=== PATIENT | male | born 1975 | race Caucasian/White ===

== ENCOUNTER 2023-11-27 06:36 | Emergency (ER) | payer BC, SELFPAY ==
[2023-11-27 07:06] VITALS: BP 147/81; PULSE 83; RESP 18; TEMP 36.4; O2SAT 97; BMI 39.4
--- NOTE | 2023-11-27 07:20 | ED.GENADULT ---
HPI - General Adult General Chief complaint: Skin/Abscess/Foreign Body Stated complaint: sore on right leg Time Seen by Provider: 11/27/23 07:20 History of Present Illness HPI narrative: states sore on upper inner right thigh. noted about a week ago, getting worse. 48-year-old man presenting to the emergency department with concern of a sore on his leg; specifically the far upper inner right thigh. He thinks he noted something bothering him there about a week ago. He has not had a fever or sweats. He thought maybe he scrubbed too hard in the area during bathing. He has not had any drainage. Particularly tender when he goes to sit on the toilet. Has not noted any hematochezia. He does shave and thought maybe this could have irritated the area. Past medical includes hypertension, gout, dyslipidemia Related Data Home Medications Medication Instructions Recorded Confirmed allopurinol 100 mg tablet 200 mg PO DAILY 11/27/23 11/27/23 fenofibrate 160 mg tablet 160 mg PO DAILY 11/27/23 11/27/23 metoprolol succinate 50 mg 50 mg PO DAILY 11/27/23 11/27/23 tablet,extended release 24 hr mirtazapine 7.5 mg tablet 7.5 mg PO QPM 11/27/23 11/27/23 Allergies Allergy/AdvReac Type Severity Reaction Status Date / Time No Known Drug Allergies Allergy Verified 11/27/23 07:09 Exam Narrative: Exam Narrative: Is pleasant. Matter of fact in style. Breathing easily. Abdomen is little overweight. Is lying in boxer briefs. Pulling the leg up reveals the area in question deep in the right inner thigh not quite at the inguinal crease. There is some bruising or superficial vascularity/varicose veins along with some stretch saucedo in the area. A little boggy over these areas. Total area of mild erythema is about 6 cm in diameter. Centrally about a 3 cm area of deeper induration, possible abscess. The skin itself is not remarkably indurated. He is exquisitely tender to palpation generally. Const: Vital Signs, click to edit/add: Vital Signs - 24 hr 11/27/23 07:06 Temperature 97.6 F Pulse Rate [Right Pulse Oximeter] 83 Respiratory Rate 18 Blood Pressure [Ri ght Upper Arm] 147/81 H Pulse Oximetry 97 Oxygen Delivery Me thod Room Air Documenting provider has reviewed patient's vital signs: yes Course Vital Signs Vital signs: Initial Vital Signs Temperature 97.6 F 11/27/23 07:06 Temperature Source Temporal Artery Scan 11/27/23 07:06 Pulse Rate 83 11/27/23 07:06 Respiratory Rate 18 11/27/23 07:06 Blood Pressure 147/81 H 11/27/23 07:06 Blood Pressure Mean 103 11/27/23 07:06 Blood Pressure Position Sitting 11/27/23 07:06 Pulse Oximetry 97 11/27/23 07:06 Oxygen Delivery Method Room Air 11/27/23 07:06 Vital Signs Temperature 97.6 F 11/27/23 07:06 Pulse Rate 83 11/27/23 07:06 Respiratory Rate 18 11/27/23 07:06 Blood Pressure 147/81 H 11/27/23 07:06 Pulse Oximetry 97 11/27/23 07:06 Oxygen Delivery Method Room Air 11/27/23 07:06 Temperature 97.6 F 11/27/23 07:06 Pulse Rate 83 11/27/23 07:06 Respiratory Rate 18 11/27/23 07:06 Blood Pressure 147/81 H 11/27/23 07:06 Pulse Oximetry 97 11/27/23 07:06 Oxygen Delivery Method Room Air 11/27/23 07:06 Medical Decision Making MDM Narrative Medical decision making narrative: This is a little unusual. With abscess and overlying cellulitis I would expect more heat and induration but I think this is the more likely answer. Did cleanse the area with Betadine and using 18 gauge needle inserted it into the area where I thought I saw a small dot of possible pointing, and into the deeper swelling. Was able to obtain about half a mL of darker blood. No purulence evident. Continue to ooze a little bit of blood after retracting needle slowed quickly. Also in differential would be bleeding vascularity, deeper varicose vein, venous banuelos, AVM. I have discussed this case with on-call surgeon and oncoming partner will be assuming cares at change of shift. At this time will place IV and anticipate IV contrasted pelvis CT. Labs pending as well. Discharge Plan Discharge Prescriptions: No Action metoprolol succinate 50 mg tablet extended release 24 hr 50 mg PO DAILY allopurinol 100 mg tablet 200 mg PO DAILY mirtazapine 7.5 mg tablet 7.5 mg PO QPM fenofibrate 160 mg tablet 160 mg PO DAILY Follow Up/Referrals: Yossi Angulo MD [Primary Care Provider] -
--- NOTE | 2023-11-27 08:03 | CT_ITS ---
Patient: ESEQUIEL WINCHESTER Facility:?[facility] Patient ID:?[id number] Site Patient ID:?[id number]. Site :?[id number] Study:?CT-Pelvis W/IV-11/27/2023 8:54:17 AM Ordering Physician:TRISTON Final Report: Indication: Swelling upper inner right thigh. Rule out abscess, infection or hematoma Technique: CT examination of the pelvis was performed. The study was performed after the intravenous administration of 122 cc of Isovue 370. Sagittal and coronal reformatted imaging was performed. Imaging was acquired from the mid pelvis through about the proximal 3rd of both femurs. Please note that all CT scans at this facility use dose modulation, iterative reconstruction, and/or weight-based dosing when appropriate to reduce radiation dose to as low as reasonably achievable. Comparison: There are no prior studies for comparison. Findings: No significant osseous abnormality. The limited visualized intrapelvic contents are unremarkable. There are small fat containing bilateral inguinal hernias. There is cutaneous and subcutaneous induration of the upper inner right thigh mainly posteriorly extending towards the inferior right gluteal fold. There is no gas within soft tissues and there is no discrete drainable collection. This likely represents cellulitis. Impression: Cutaneous and immediate subcutaneous abnormality in the upper inner right thigh posteriorly. No gas within soft tissues. No drainable collection. This probably represents cellulitis. Please note that all CT scans at this facility use dose modulation, iterative reconstruction, and/or weight-based dosing when appropriate to reduce radiation dose to as low as reasonably achievable. Dictated by Cade Garcia MD @ 11/27/2023 10:42:15 AM Signed by:?Cade Garcia MD @11/27/2023 10:42:15 AM (Electronic Signature)
[2023-11-27 08:34] LABS: Basophils Absolute Auto 0.02 K/uL (0.00-0.30); Basophils Percent Auto 0.4 % (0.0-3.0); Eosinophils Percent Auto 2.1 % (0.0-7.0); Hematocrit 39.9 % (37.0-53.0); Hemoglobin* 13.6 gm/dL (13.5-17.5); Immature Granulocytes Abs Auto 0.03 K/uL (0.00-0.30); Immature Granulocytes Pct Auto 0.6 %; Lymphocytes Absolute Auto 1.42 K/uL (0.90-2.90); Lymphocytes Percent Auto 29.3 % (20-44); Mean Corpuscular HGB Conc 34 gm/dL (32-36); Mean Corpuscular Hemoglobin 32 pg (26-34); Mean Corpuscular Volume 93 fL (80-100); Monocytes Percent Auto 10.5 % (0.0-11.0); Neutrophils Absolute Auto 2.76 K/uL (1.7-7.0); Neutrophils Percent Auto 57.1 % (42.0-72.0); Platelet Count* 186 K/uL (140-440); RDW Coefficient of Variation % 11.6 % (11.5-15.5); Red Blood Count 4.27 m/uL (4.30-5.90); Slide Review Reflex No; White Blood Count* 4.84 K/uL (4.50-11.00)
[2023-11-27] MEDS: 0.9 % SODIUM CHLORIDE 1000 ml 1,000 ML IV (08:37)
[2023-11-27 08:55] LABS: C Reactive Protein* 1.6 mg/dL (0.5-1.0)
[2023-11-27 10:43] VITALS: BP 146/89; PULSE 74; RESP 16; O2SAT 96
== END 2023-11-27 11:25 | disposition home or self-care (01) ==
PROVIDERS: Family Medicine; Emergency Provider Emergency Medicine; PCP Family Medicine
DX: L03.115 Cellulitis of right lower limb (principal)
CPT/HCPCS: 36415; 72193; 85025; 86140; 99284; J7030; Q9967

== ENCOUNTER 2024-02-06 20:59 | Emergency (ER) | payer BC, SELFPAY ==
[2024-02-06 21:07] VITALS: BP 134/101; PULSE 110; RESP 20; TEMP 37.2; O2SAT 97; BMI 37.3
--- NOTE | 2024-02-06 21:35 | ED.GENADULT ---
HPI - General Adult General Time Seen by Provider: 21:35 Date Seen: 02/06/24 Chief complaint: Skin/Abscess/Foreign Body Stated complaint: R leg pain Time Seen by Provider: 02/06/24 21:34 Source: patient, RN notes reviewed and old records reviewed Mode of arrival: ambulatory Limitations: no limitations History of Present Illness HPI narrative: Patient is a very pleasant 48-year-old gentleman with a history of cellulitis in the groin who comes to the emergency room with complaints of redness and soreness in the same location that he experienced this in November. Patient notes that in November he waited 2 weeks and had discomfort and a large area of swelling in the groin. He is showing me the area of the very posterior medial thigh with some extension onto the posterior buttocks. He notes that he was placed on 2 antibiotics which I do learn was Keflex and Bactrim. He states that he was on this medication for 10 days and finally his symptoms cleared up. While he was here however he had such large amount of swelling that they tried to do a needle aspiration but only read got blood back. He states they did a CT but at that time there was no large abscess to be drained. He does not note any fever and he has not had any chills. He states that he put some calamine lotion on the area because he felt like it was burning. He does use a razor to shave hair in this area. He has not taken any pain medication at this point. Denies any pain into the scrotum. Related Data Home Medications Medication Instructions Recorded Confirmed allopurinol 100 mg tablet 200 mg PO DAILY 11/27/23 02/06/24 fenofibrate 160 mg tablet 160 mg PO DAILY 11/27/23 02/06/24 metoprolol succinate 50 mg 50 mg PO DAILY 11/27/23 02/06/24 tablet,extended release 24 hr mirtazapine 7.5 mg tablet 7.5 mg PO QPM 11/27/23 02/06/24 Previous Rx's Medication Instructions Recorded cephalexin 500 mg capsule 500 mg PO QID #40 caps 11/27/23 sulfamethoxazole 800 1 tab PO BID 10 days #20 tabs 11/27/23 mg-trimethoprim 160 mg tablet (Bactrim DS) Allergies Allergy/AdvReac Type Severity Reaction Status Date / Time No Known Drug Allergies Allergy Verified 11/27/23 07:09 Review of Systems Status of ROS: Reports: 10 or more systems reviewed and unremarkable except as noted in History and below Exam Narrative: Exam Narrative: Mr. Coyle is alert and oriented. He is a very talkative and pleasant gentleman in no acute distress. No respiratory distress. Abdomen soft. Examination of the groin shows no discomfort in the lower abdomen onto the anterior leg. Will as patient bends his knee there is area of mild erythema on the most superior aspect of the right inner thigh extending onto the buttock. There is no drainage from this area. Just laterally to this area there are skin changes consistent with a previous chronic infection and perhaps a sinus tract. There is no drainage at this time. There is no fluctuance in this area to suggest a large abscess. There is no erythema evidence of infection of the scrotum. Const: Vital Signs, click to edit/add: Vital Signs - 24 hr 02/06/24 21:07 Temperature 99 F Pulse Rate [Right Pulse Oximeter] 110 H Respiratory Rate 20 Blood Pressure [Ri ght Upper Arm] 134/101 H Pulse Oximetry 97 Oxygen Delivery Me thod Room Air Documenting provider has reviewed patient's vital signs: yes Course Vital Signs Vital signs: Initial Vital Signs Temperature 99 F 02/06/24 21:07 Temperature Source Temporal Artery Scan 02/06/24 21:07 Pulse Rate 110 H 02/06/24 21:07 Pulse Rhythm Regular 02/06/24 21:07 Pulse Strength 3+ Normal 02/06/24 21:07 Respiratory Rate 20 02/06/24 21:07 Blood Pressure 134/101 H 02/06/24 21:07 Blood Pressure Mean 112 H 02/06/24 21:07 Pulse Oximetry 97 02/06/24 21:07 Oxygen Delivery Method Room Air 02/06/24 21:07 Vital Signs Temperature 99 F 02/06/24 21:07 Pulse Rate 110 H 02/06/24 21:07 Respiratory Rate 20 02/06/24 21:07 Blood Pressure 134/101 H 02/06/24 21:07 Pulse Oximetry 97 02/06/24 21:07 Oxygen Delivery Method Room Air 02/06/24 21:07 Temperature 99 F 02/06/24 21:07 Pulse Rate 110 H 02/06/24 21:07 Respiratory Rate 20 02/06/24 21:07 Blood Pressure 134/101 H 02/06/24 21:07 Pulse Oximetry 97 02/06/24 21:07 Oxygen Delivery Method Room Air 02/06/24 21:07 Medical Decision Making MDM Narrative Medical decision making narrative: 1. Cellulitis-this appears to be an early cellulitis. I am wondering if recurrent shaving of the groin is causing this sort of thing. There is certainly skin changes darkening of the skin suggestive of a previous infection/ingrown hair. This is not significantly warm to the touch nor is there any extension of this on to the scrotum itself. I would suggest treatment with Keflex and Bactrim as we had done previously. There is nothing to culture at this time and there is no fluctuance to suggest need for any aspiration. Keflex 500 mg p.o. t.i.d. x7 days and Bactrim double strength 1 tab p.o. b.i.d. x7 days is ordered via [employer]. 2. Disposition-home at this time. Have suggested to patient that he needs follow-up if he is not improving or medical attention if he has worsening symptoms especially fever vomiting chills and as needed. He voices understanding. Discharge Plan Discharge Clinical Impression: Cellulitis Qualifiers: Site of cellulitis: buttock Qualified Code(s): L03.317 - Cellulitis of buttock Patient Disposition: Home, Self-Care Condition: Unchanged Additional Instructions: Suggest that we follow same treatment as you had in November. At this time I do not note any drainable area but I do think that you have very early cellulitis. You may wish to discontinue any shaving in the groin area. We will start you on Keflex and Bactrim again. I put this in our [facility] meds machine. Try not to irritate this area. If you notice fever, increased swelling you will need to be re-evaluated. Prescriptions: No Action metoprolol succinate 50 mg tablet extended release 24 hr 50 mg PO DAILY allopurinol 100 mg tablet 200 mg PO DAILY mirtazapine 7.5 mg tablet 7.5 mg PO QPM fenofibrate 160 mg tablet 160 mg PO DAILY cephalexin 500 mg capsule 500 mg PO QID Qty: 40 0RF sulfamethoxazole-trimethoprim [Bactrim DS] 800-160 mg tablet 1 tab PO BID 10 Days Qty: 20 0RF Follow Up/Referrals: Yossi Angulo MD [Primary Care Provider] - Stand Alone Forms: [employer] Info Instructions
--- OUTSIDE RECORDS SUMMARY | 2024-02-06 22:11 | XMS_ITS | Clinical Summary ---
Author Name Unknown Organization [facility] Address [address] [place] [address] Care Team Providers Care Distance Learning Coordinator Name Role Phone Clinic, [facility] Primary Care Provider Allergies No known active allergies Medications Medication Sig Dispensed Refills Start Date End Date Status oxyCODONE (ROXICODONE) 5 MG tablet Take 1 tablet (5 mg) by mouth every 6 hours as needed for pain 8 tablet 09/11/2020 Active Social History Tobacco Use Types Packs/Day Years Used Date Smoking Tobacco: Never Assessed Adolescent Education Answer Date Record ed Getting School Help Needed Not on file 06/27 Sex and Gender Information Value Date Recorded Sex Assigned at Not on file Gender Identity Not on file Sexual Orientation Not on file Last Filed Vital Signs Vital Sign Reading Time Taken Comments Blood Pressure 143/95 04/16/2021 12:33 AM CDT Pulse 79 04/16/2021 12:33 AM CDT Temperature 36 ??C (96.8 ??F) 04/16/2021 12:33 AM CDT Respiratory Rate 20 04/16/2021 12:33 AM CDT Oxygen Saturation 95% 04/16/2021 12:33 AM CDT Inhaled Oxygen Concentration - - Weight 111.3 kg (245 lb 6 oz) 04/16/2021 12:33 A M CDT Height - - Body Mass Index - - Plan of Treatment Health Maintenance Due Date Last Done Comments ADVANCE CARE PLANNING 1975 ANNUAL REVIEW OF HM ORDERS 1977 CT COLONOGRAPHY 1977 FIT 1975 FLEX SIG 1975 YEARLY PREVENTIVE VISIT 1977 sDNA (Cologuard) 1977 COLONOSCOPY 1987 COLORECTAL CANCER SCREENING 1987 HIV SCREENING 1992 HEPATITIS C SCREENING 1995 HEPATITIS B IMMUNIZATION (1 of 3 - 19+ 3-dose series) 1996 LIPID 2017 COVID-19 Vaccine (1 - 2022-2 4 season) 2023 GLUCOSE 09/11/2023 09/11/2020, 08/13/2020 PHQ-2 (once per calendar year) 2023 INFLUENZA VACCINE (Season Ended) 2024 DTAP/TDAP/TD IMMUNIZATION (2 - Td or Tdap) 11/10/2029 11/10/2019 HPV IMMUNIZATION Aged Out No longer e ligible based on patient's age to complete this topic IPV IMMUNIZATION Aged Out No longer e ligible based on patient's age to complete this topic MENINGITIS IMMUNIZATION Aged Out No l onger eligible based on patient's age to complete this topic Pneumococcal Vaccine: Pediatrics (0 to 5 Years) and At-Risk Patients (6 to 64 Years) Aged Out No longer eligible b ased on patient's age to complete this topic RSV MONOCLONAL ANTIBODY Aged Out No l onger eligible based on patient's age to complete this topic Procedures Procedure Name Priority Date/Time Associated Diagnosis Comments BASIC METABOLIC PANEL STAT 09/11/2020 2:04 PM [facility] from Last 3 Months or Most Recently Relevant to Health Maintenance Results * (ABNORMAL) Basic metabolic panel (09/11/2020 2:04 PM [facility]) Sodium 138 133 - 144 mmol/L 09/11/2020 2:25 PM [facility] Potassium 4.1 3.4 - 5.3 mmol/L 09/11/2020 2:25 PM [facility] Chloride 108 94 - 109 mmol/L 09/11/2020 2:25 PM [facility] Carbon Dioxide 26 20 - 32 mmol/L 09/11/2020 2:34 PM [facility] Anion Gap 4 3 - 14 mmol/L 09/11/2020 2:34 PM [facility] Glucose 112(H) 70 - 99 mg/dL 09/11/2020 2:34 PM [facility] Urea Nitrogen 22 7 - 30 mg/dL 09/11/2020 2:34 PM [facility] Creatinine 1.17 0.66 - 1.25 mg/dL 09/11/2020 2:34 PM [facility] GFR Estimate 76 >60 mL/min/{1. 73_m2} 09/11/2020 2:34 PM [facility] Comment: Non GFR Calc Starting 09/21/2018, serum creatinine based estimated GFR (eGFR) will be calculated using the Chronic Kidney Disease Epidemiology Collaboration (CKD-EPI) equation. GFR Estimate If Black 88 >60 mL/min/{1. 73_m2} 09/11/2020 2:34 PM [facility] Comment: GFR Calc Starting 09/21/2018, serum creatinine based estimated GFR (eGFR) will be calculated using the Chronic Kidney Disease Epidemiology Collaboration (CKD-EPI) equation. Calcium 9.4 8.5 - 10.1 mg/dL 09/11/2020 2:34 PM [facility] Blood specimen (specimen) 09/11/2020 2:04 PM [facility] 09/11/2020 2:12 PM [facility] Nahed Nance MD LAB - BLOOD O RDERABLES [facility] [address] [place] [address], [facility] [phone] [facility] [address] [place] [address], [facility] [phone] from Last 3 Months or Most Recently Relevant to Health Maintenance Care Teams Distance Learning Coordinator Relationship Specialty Start Date End Date [facility], [address] [address] PCP - General 08/13/20
--- OUTSIDE RECORDS SUMMARY | 2024-02-06 22:11 | XMS_ITS | Clinical Summary ---
Author Name Unknown Organization [facility] Address [place], [place] [address] Care Team Providers Care Separating Machine Operator Name Role Phone Pcp, No Primary Care Provider Unavailabl e Allergies Active Allergy Reactions Criticality Noted Date Comments Grass Pollen Other - Describe In Comment Field 08/31/2020 Watery eyes [place] Hives 08/31/2020 Medications Medication Sig Dispensed Refills Start Date End Date Status allopurinoL (ZYLOPRIM) 100 mg tabletIndications:Gou t, unspecified cause, unspecified chronicity, unspecified site TAKE 2 TABLETS(200 MG) BY MOUTH EVERY DAY 180 Tablet 3 10/22/2023 Active metoprolol succinate (TOPROL XL) 50 mg sustained-release tabletIndications:HTN (hypertension) Take 1 Tablet (50 mg) by mouth once daily. 90 Tablet 3 10/22/2023 Active fenofibrate 160 mg tabletIndications:Lauren vated triglycerides with high cholesterol Take 1 Tablet (160 mg) by mouth once daily with a meal. 90 Tablet 3 11/19/2023 Active mirtazapine (REMERON) 7.5 mg tabletIndications:Chr onic insomnia Please take 1 pill orally at bedtime-- 10 hours before you plan on waking up 90 Tablet 3 12/30/2023 Active CPAPIndications:STEVENSON (obstructive sleep apnea) CPAP machine for home use at pressure 19cmw, full face mask x1/3month with a full face cushion x1/mo 1 Each 11 12/30/2023 Active Active Problems Problem Noted Date Diagnosed Date Class 2 severe obesity with body mass index (BMI) of 35 to 39.9 with serious comorbidity 10/22/2023 Prediabetes 10/24/2022 STEVENSON 12/14/2018 AHI- 16 11/29/2021 AHI-34 FFM 02/14 Lumbar disc herniation 08/14/2020 Gout 08/13/2020 HTN (hypertension) Resolved Problems Problem Noted Date Diagnosed Date Resolved Date Cauda equina compression 08/14/202006/2021 Encounters Date Type Department Care Team Description 12/30/2023 11:00 AM CDT Office Visit [facility] [address] [place] [address] Rubin Buitrago MD Sleep Follow-up 12/30/2023 Travel 12/25/2023 Travel 12/01/2023 Patient Outreach [facility] Care Management - Care Management Navigation/[facility] [address] [place] [address] [facility]Care Guide Community Resource Navigation/) 11/27/2023 Orders Only [facility] Scanner 1 scan: (1-Ord) [place], [place]EL[place], 11/27/2023 11/19/2023 10:25 AM BLINDSTITCH MACHINE OPERATOR Office Visit [facility] [address] [place] [address] Yossi Angulo MD Concerns (triglycerides) 11/19/2023 Travel 11/16/2023 Travel from Last 3 Months Immunizations Name Administration Dates Next Due Tdap 11/10/2019 Family History * Patient is adopted Medical History Relation Name Comments No Known Problems Father No Known Problems Mother Relation Name Status Comments Father Mother Social History Tobacco Use Types Packs/Day Years Used Date Smoking Tobacco: Former Cigarettes Smokeless Tobacco: Former Chew Tobacco Cessation:Counseling Given: Yes Comments:vaping daily Alcohol Use Standard Drinks/Week Comments Yes 4 (1 standard drink = 0.6 oz pur e alcohol) once per month PHQ-2 Answer Date Recorded PHQ-2 TOTAL SCORE 2 10/22/2023 Social Connections Answer Date Recorded Frequency of Communication with Friends and Fami ly 0 11/16/2023 Financial Resource Strain Answer Date R ecorded Difficulty of Paying Living Expenses 3 11/16/2023 Difficulty of Paying Living Expenses Not on file 11/16/2023 Food Insecurity Answer Date Recorded Worried About Running Out of Food in the Last Ye ar 2 11/16/2023 Transportation Needs Answer Date Record ed Lack of Transportation (Medical) 2 11/16/2023 Housing Stability Answer Date Recorded Unable to Pay for Housing in the Last Year 1 11/16/2023 Education Answer Date Recorded What is the highest level of school you have completed or the highest degree you have received? GED or equivalent 03/2020 Sex and Gender Information Value Date Recorded Sex Assigned at Male 10/25/2021 7:14 PM BLINDSTITCH MACHINE OPERATOR Gender Identity Male 10/25/2021 7:14 PM BLINDSTITCH MACHINE OPERATOR Sexual Orientation Straight 10/25/2021 7: 14 PM BLINDSTITCH MACHINE OPERATOR Obstetrics History Last Filed Vital Signs Vital Sign Reading Time Taken Comments Blood Pressure 148/90 12/30/2023 10:43 AM CDT Pulse 86 12/30/2023 10:43 AM CDT Temperature 36.8 ??C (98.2 ??F) 10/22/2023 10:[address] Respiratory Rate 16 08/16/2020 8:00 AM BLINDSTITCH MACHINE OPERATOR Oxygen Saturation 97% 12/30/2023 10:43 AM CDT Inhaled Oxygen Concentration - - Weight 109.8 kg (242 lb) 12/30/2023 10:43 AM CDT Height 170.2 cm (5' 7) 12/30/2023 10:43 AM CDT Body Mass Index 37.9 12/30/2023 10:43 AM CDT Plan of Treatment Upcoming Encounters Date Type Department Care Team (Late st Contact Info) Description 02/15/2024 10:15 AM CDT Orders Only [facility] [address] [place] [address] Lab, [place] 02/17/2024 10:00 AM CDT Office Visit [facility] [address] [place] [address] Votel, Yossi Cabello MD [address] [place] [address] Health Maintenance Due Date Last Done Comments COVID-19 vaccine series ( season) 2023 Influenza for age 9-49 06/05/2024 Depression screening for age 12+ 10/22/2024 10/22/2023, 10/24/2022, 10/23/2022, Additional history exists BMI (ht and wt on same day) for age 18+ 12/29/2024 12/30/2023, 11/19/2023, 10/22/2023, Additional history exists Fecal testing sDNA-FIT (Cologuard) for age 45-75 10/30/2026 10/30/2023 Lipids for age 45-75 10/22/2028 10/22/2023, 10/22/2023, 10/23/2022, Additional history exists Tetanus booster 11/10/2029 11/10/2019 Tdap Completed 11/10/2019 HIV for age 15-65 Completed 10/23/2022 Hepatitis C screening for age 18-79 Completed 10/23/2022 Fecal testing non-DNA (FIT,FOBT,iFOBT) for age 45-75 Discontinued 10/24/2022 Pneumococcal series for age 6-64 Aged Out No longer eligible based on patient's age to complete this topic Procedures Procedure Name Priority Date/Time Associated Diagnosis Comments SCAN-CT INTERPRETATION 11/27/2023 12:00 AM BLINDSTITCH MACHINE OPERATOR SDNA-FIT EXTERNAL (COLOGUARD) Routine 10/30/2023 9:15 AM BLINDSTITCH MACHINE OPERATOR Screening for colon cancer LIPID PANEL W REFLEX MEASURED LDL Routine 10/22/2023 9:35 AM BLINDSTITCH MACHINE OPERATOR HTN (hypertension) OCCULT BLOOD IFOBT STOOL Routine 10/24/2022 1:39 PM BLINDSTITCH MACHINE OPERATOR Screening for colon cancer LC HIV-1/O/2, 4TH GENERATION Routine 10/23/2022 10:35 AM BLINDSTITCH MACHINE OPERATOR Screening for HIV (human immunodeficiency virus) LC HCV ANTIBODY RFX TO QUANT PCR Routine 10/23/2022 10:35 AM BLINDSTITCH MACHINE OPERATOR Need for hepatitis C screening test from Last 3 Months or Most Recently Relevant to Health Maintenance Results * SCAN-CT INTERPRETATION (11/27/2023 12:00 AM BLINDSTITCH MACHINE OPERATOR) Anatomical Region Laterality Modality Other Scanner OTHER * SDNA-FIT EXTERNAL (COLOGUARD) (10/30/2023 9:15 AM BLINDSTITCH MACHINE OPERATOR) NONINV COLON CA DNA+OCC BLD SCRN STL-IMP Negative Negative 11/06/2023 9:47 AM BLINDSTITCH MACHINE OPERATOR [facility] (CLIA #:[id number]) Comment: NEGATIVE TEST RESULT. A negative Cologuard result indicates a low likelihood that a colorectal cancer (CRC) or advanced adenoma (adenomatous polyps with more advanced pre-malignant features) ??is present. The chance that a person with a negative Cologuard test has a colorectal cancer is less than 1 in 1500 (negative predictive value >99.9%) or has an ??advanced adenoma is less than ??5.3% (negative predictive value 94.7%). These data are based on a prospective cross-sectional study of 10,000 individuals at average risk for colorectal cancer who were screened with both Cologuard and colonoscopy. (Terry Grace. et al, N Engl J Med 2014;370(14):1286- 1297) The normal value (reference range) for this assay is negative. COLOGUARD RE-SCREENING RECOMMENDATION: Periodic colorectal cancer screening is an important part of preventive healthcare for asymptomatic individuals at average risk for colorectal cancer. ??Following a negative Cologuard result, the [place] Cancer Society and U.S. Multi-Society Task Force screening guidelines recommend a Cologuard re-screening interval of 3 years. References: [place] [employer] Guideline for Colorectal Cancer Screening: https://www.cancer.org/cancer/btwrc-ypyubt-gjfuhn/hpquaklym-tpczejtqx-potzsig/ac s-rec ommendations.html.; Raheem MCCAIN, Starla MOE, Esthela LisaK, Colorectal Cancer Screening: Recommendations for Physicians and Patients from the U.S. Multi-Society Task Force on Colorectal Cancer Screening , Am J Gastroenterology 2017; 112:3172-3648. TEST DESCRIPTION: Composite algorithmic analysis of stool DNA-biomarkers with hemoglobin immunoassay. ?? Quantitative values of individual biomarkers are not reportable and are not associated with individual biomarker result reference ranges. Cologuard is intended for colorectal cancer screening of adults of either sex, 45 years or older, who are at average-risk for colorectal cancer (CRC). Cologuard has been approved for use by the U.S. FDA. The performance of Cologuard was established in a cross sectional study of average-risk adults aged 50-84. Cologuard performance in patients ages 45 to 49 years was estimated by sub-group analysis of near-age groups. Colonoscopies performed for a positive result may find as the most clinically significant lesion: colorectal cancer [4.0%], advanced adenoma (including sessile serrated polyps greater than or equal to 1cm diameter) [20%] or non- advanced adenoma [31%]; or no colorectal neoplasia [45%]. These estimates are derived from a prospective cross-sectional screening study of 10,000 individuals at average risk for colorectal cancer who were screened with both Cologuard and colonoscopy. (Terry Sanz al, N Engl J Med 2014;370(14):4499-0879.) Cologuard may produce a false negative or false positive result (no colorectal cancer or precancerous polyp present at colonoscopy follow up). A negative Cologuard test result does not guarantee the absence of CRC or advanced adenoma (pre-cancer). The current Cologuard screening interval is every 3 years. ([place] [employer] and U.S. Multi-Society Task Force). Cologuard performance data in a 10,000 patient pivotal study using colonoscopy as the reference method can be accessed at the following location: www.[place]/results. Additional description of the Cologuard test process, warnings and precautions can be found at www.[facility].[place]. Stool specimen (specimen) (Rectum) 10/30/2023 9:15 AM BLINDSTITCH MACHINE OPERATOR 10/31/2023 1:00 PM BLINDSTITCH MACHINE OPERATOR Yossi Angulo MD URINE [address] [facility] (CLIA #:[id number]) [address] [place] [address], * (ABNORMAL) LIPID PANEL W REFLEX MEASURED LDL (10/22/2023 9:35 AM BLINDSTITCH MACHINE OPERATOR) CHOLESTEROL,TOTAL 239(H) 100 - 199 mg/dL 10/22/2023 5:13 PM BLINDSTITCH MACHINE OPERATOR [employer] [facility] Comment: Cholesterol, Total Reference Ranges Desirable <200 mg/dL Borderline 200-239 mg/dL High >=240 mg/dL TRIGLYCERIDES 735(H) <150 mg/dL 10/22/2023 5:13 PM BLINDSTITCH MACHINE OPERATOR [facility] HDL CHOLESTEROL 30(L) >40 mg/dL 4 5:13 PM BLINDSTITCH MACHINE OPERATOR [facility] NON-HDL CHOLESTEROL 209(H) <145 mg/dl 10/22/2023 5:13 PM BLINDSTITCH MACHINE OPERATOR [facility] CHOL/HDL RATIO 7.97(H) <4.50 10/22/2023 5:13 PM BLINDSTITCH MACHINE OPERATOR [facility] LDL CHOLESTEROL 4 5:13 PM BLINDSTITCH MACHINE OPERATOR [facility] Comment:Invalid LDL when Tri g >400. VLDL CHOLESTEROL COMMENT 10/22/2023 5:13 PM BLINDSTITCH MACHINE OPERATOR [facility] Comment:Unable to calculate VLDL. PROVIDER ORDERED STATUS RANDOM 10/22/2023 5:13 PM BLINDSTITCH MACHINE OPERATOR [facility] Blood BLOOD SPECIMEN / Unknown Venipuncture / Unknown 10/22/2023 9:35 AM BLINDSTITCH MACHINE OPERATOR 10/22/2023 9:36 AM BLINDSTITCH MACHINE OPERATOR Yossi Angulo MD CHEMISTRY [facility] [address] [place] [address], * OCCULT BLOOD IFOBT STOOL (10/24/2022 1:39 PM BLINDSTITCH MACHINE OPERATOR) STOOL BLOOD ,IFOBT Negative Negative 11/03/2022 3:38 PM BLINDSTITCH MACHINE OPERATOR [facility] Stool STOOL SPECIMEN / Unknown Non-Blood / Unknown 10/24/2022 1:39 PM BLINDSTITCH MACHINE OPERATOR 11/03/2022 1:39 PM BLINDSTITCH MACHINE OPERATOR Layo Lopez MD LABORATORY [facility] [address] [place] [address], * LC HCV ANTIBODY RFX TO QUANT PCR (10/23/2022 10:35 AM BLINDSTITCH MACHINE OPERATOR) HCV Ab <0.1 0.0 - 0.9 s/co ratio 10/26/2022 12:07 PM BLINDSTITCH MACHINE OPERATOR [facility] ([facility]) Blood BLOOD SPECIMEN / Unknown Venipuncture / Unknown 10/23/2022 10:35 AM BLINDSTITCH MACHINE OPERATOR 10/23/2022 10:38 AM BLINDSTITCH MACHINE OPERATOR Narrative [facility] ([facility]) - 10/26/2022 12:07 PM BLINDSTITCH MACHINE OPERATOR Performed at: ??[address] ??[id number] Stunt Driver: Rudolph Sorto MD, Phone: ??[phone] Layo Lopez MD LABORATORY Performing Organization Address [facility] Co de Phone Number [facility] ([facility]) [address] [place] [address] * HIV-1/O/2, 4TH GENERATION (10/23/2022 10:35 AM BLINDSTITCH MACHINE OPERATOR) HIV Scr 4th Gen Non Reactive Non Reactive 10/26/2022 12:07 PM BLINDSTITCH MACHINE OPERATOR [facility] ([facility]) Comment: HIV Negative HIV-1/HIV-2 antibodies and HIV-1 p24 antigen were NOT detected. There is no laboratory evidence of HIV infection. Blood BLOOD SPECIMEN / Unknown Venipuncture / Unknown 10/23/2022 10:35 AM BLINDSTITCH MACHINE OPERATOR 10/23/2022 10:38 AM BLINDSTITCH MACHINE OPERATOR Narrative [facility] ([facility]) - 10/26/2022 12:07 PM BLINDSTITCH MACHINE OPERATOR Performed at: ??[address] ??[id number] Stunt Driver: Rudolph Sorto MD, Phone: ??[phone] Layo Lopez MD LABORATORY Performing Organization Address [facility]/State/ZIP Co de Phone Number [facility] ([facility]) [address] [place] [address] from Last 3 Months or Most Recently Relevant to Health Maintenance Advance Directives * Full Code (Latest Code Status on File) Date Activated Date Inactivated Comments 08/13/2020 9:35 PM 08/16/2020 1:03 PM Question Answer Comments Code Status Discussion: Not Discussed Care Teams Separating Machine Operator Relationship Specialty Start Date End Date Pcp, No . PCP - General 09/17/23
--- OUTSIDE RECORDS SUMMARY | 2024-02-06 22:11 | XMS_ITS | Data Portability ---
Author Name Unknown Address [address] [place] [address] Phone [phone] Organization [facility] - (IP) Address [address] [place] [address] Care Team Providers Care Firebrick Layer Helper Name Role Phone VOTEL, BRENDA Primary Care Provider HUGH BHANDARI Referring Provider Assessment Encounter Date Assessment Date Assessment LastModified by Organization Details LastModified Time 09/18/2020 09/18/2020 PT NO SHOWED APPOINTMENT, NO DICTATION kellen Not available 09/20/2020 09:30:06 10/09/2020 10/09/2020 Mr. Coyle is now approximately 2 months out from his L4-L5 bilateral laminectomy and microdiscectomy performed for severe spinal stenosis. He is recovering well. At this point, he may continue to increase his activity as tolerated. We will follow up with him on an as-needed basis. [email or web address] Not available 10/09/2020 22:25:16 Plan of Treatment Reminders Order Date Submit Date Provider Last Modified By Organization Details Last Modified Time Details Appointments None record ed. Lab None record ed. Referral None record ed. Procedures None record ed. Surgeries None record ed. Imaging None record ed. Medication Orders None record ed. Patient TargetsNo targets recorded. Patient InstructionsNo instructions recorded. Reason for Referral None Reported. Results Created Date Observation Date Name Description Value Unit Range Abnormal Flag LastModifiedBy Organization Detail LastModifiedTime 08/15/2008/14/2020 XR, lumba r spine No observ ation record ed. [facility] [address], [place], [address], 08/15/2020 12:28:00 08/15/20 20 08/14/2020 XR, lumba r spine No observ ation record ed. [facility] [address], [place], [address], 08/15/2020 12:28:14 Result Notes None recorded. Procedures Surgical History None recorded. Imaging Results Imaging Date Name Status LastModified by Organiz ation Details LastModified Time 08/14/2020 XR, lumbar spine completed [facility] [address], [place], [address], 08/15/2020 12:28:00 08/14/2020 XR, lumbar spine completed [facility] [address] [place], [address], 08/15/2020 12:28:14 Procedure Notes None recorded. Medical Equipment None Reported. Medications Name Sig Start Date Stop Date Status Note LastModified by Organization Details LastModified Time cyclobenzaprine 10 mg tablet active Not Available Not Available Not Available prednisone 10 mg tablet active Not Available Not Available No t Available metoprolol succinate ER 50 mg tablet,extended release 24 hr TK 1 T PO QD active Not Available Not Available No t Available prednisone 20 mg tablet active Not Available Not Available No t Available allopurinol 100 mg tablet active Not Available Not Available No t Available methocarbamol 750 mg tablet active Not Available Not Availabl e Not Available dexamethasone 2 mg tablet active Not Available Not Available No t Available cephalexin 500 mg capsule TAKE 1 CAPSULE BY MOUTH 4 TIMES DAILY FOR 7 DAYS active Not Available Not Available No t Available pantoprazole 40 mg tablet,delayed release TK 1 T PO QD active Not Available Not Available No t Available prednisone 50 mg tablet TK 1 T PO D active Not Available Not Available No t Available indomethacin 50 mg capsule TK 1 C PO TID WC active Not Available Not Available No t Available hydrochlorothia zide 25 mg tablet TK 1 T PO QD active Not Available Not Available No t Available ibuprofen 600 mg tablet active Not Available Not Available No t Available polyethylene glycol 3350 17 gram/dose oral powder active Not Available Not Available Not Available oxycodone 5 mg tablet TAKE 1 TABLET BY MOUTH EVERY 6 HOURS NEEDED FOR PAIN active Not Available Not Available No t Available hydroxyzine pamoate 25 mg capsule active Not Available Not Available Not Available Vitals None Recorded Social History None recorded. Functional Status None recorded. Mental Status None recorded. Family History Nothing Reported. Medical History No medical history recorded. Past Encounters Encounter ID Performer Location Encounter Start Date Encounter Closed Date Diagnosis/Indication Diagnosis SNOMED-CT Code [id number] Brenda Dunne [facility] [address] [place] [id number] 09/18/2020 14:12:13 09/18/2020 17:22:11 [id number] Kati Espinoza [facility] [address] [place] [id number] 10/09/2020 17:27:26 10/09/2020 17:28:30 Health Concerns Section Related Observation LastModified by Organization Detai ls LastModified Time None Recorded Concern Status LastModified by Organization Details LastModified Time None Recorded Advance Directives Directive None Recorded Payers Encounter Date Sequence Insurance Name Policy Number Policy Jennings Covered Member ID Jennings Member ID Guarantor Name 10/09/2020 1 [id number] [facility] [place] [id number] Ajntry G Coyle 09/18/2020 1 [id number] [facility] Ajntry G Coyle [id number] Ajntry G Coyle Notes Date Note Type Note Provider Name and Address Organization Details Recorded Time 09/18/2020 text/html HPI Notes: PT NO SHOWED APPOINTMENT, NO DICTATION Brenda Dunne [facility] [place] - [facility] 09/20/2020 09:30:11 10/09/2020 text/html HPI Notes: Mr. Pop Coyle was seen today in follow up in the Neurosurgery Clinic. As you know, Mr. Coyle is a 44-year-old gentleman with a history of large L4-L5 disc herniation with severe spinal stenosis. Mr. Coyle underwent L4-L5 bilateral laminectomy and microdiscectomy on August 14, 2020. He tolerated this procedure well without complication. He has had resolution of his right lower extremity pain following surgery. His strength has also returned. His sensation is returning and he is only left with a small amount of residual numbness in the toes of his right foot. He is very pleased with the results of the operation. JESSICA [place] - [facility] 10/10/2020 11:33:28
--- OUTSIDE RECORDS SUMMARY | 2024-02-06 22:11 | XMS_ITS | Referral Summary ---
Author Name Unknown Organization [facility] [address] [place] [address] Care Team Providers Care Ingredient Scaler Helper Name Role Phone [facility] [place] Primary Care Provider Allergies No known active [...] Mass Index - - Plan of Treatment Not on file Procedures Procedure Name Priority Date/Time Associated Diagnosis Comments BASIC METABOLIC PANEL STAT 09/11/2020 2:04 PM CREDIT SUPPORT SPECIALIST from Last 3 Months or Most Recently Relevant to Health Maintenance Results * (ABNORMAL) Basic metabolic panel (09/11/2020 2:04 PM CREDIT SUPPORT SPECIALIST) [facility] Sodium 138 133 - 144 mmol/L 09/11/2020 2:[address] [facility] Potassium 4.1 3.4 - 5.3 mmol/L 09/11/2020 2:[address] [facility] Chloride 108 94 - 109 mmol/L 09/11/2020 2:[address] [facility] Carbon Dioxide 26 20 - 32 mmol/L 09/11/2020 2:34 PM [facility] Anion Gap 4 3 - 14 mmol/L 09/11/2020 2:34 PM [facility] Glucose 112(H) 70 - 99 mg/dL 09/11/2020 2:34 PM [facility] Urea Nitrogen 22 7 - 30 mg/dL 09/11/2020 2:34 PM [facility] Creatinine 1.17 0.66 - 1.25 mg/dL 09/11/2020 2:34 PM [facility] GFR Estimate 76 >60 mL/min/{1. 73_m2} 09/11/2020 2:34 PM [facility] Comment: Non GFR Calc Starting 09/21/2018, serum creatinine based estimated GFR (eGFR) will be calculated using the Chronic Kidney Disease Epidemiology Collaboration (CKD-EPI) equation. GFR Estimate If Black 88 >60 mL/min/{1. 73_m2} 09/11/2020 2:34 PM [facility] Comment: GFR Calc Starting 09/21/2018, serum creatinine based estimated GFR (eGFR) will be calculated using the Chronic Kidney Disease Epidemiology Collaboration (CKD-EPI) equation. Calcium 9.4 8.5 - 10.1 mg/dL 09/11/2020 2:34 PM [facility] Blood specimen (specimen) 09/11/2020 2:04 PM CREDIT SUPPORT SPECIALIST 09/11/2020 2:12 PM CREDIT SUPPORT SPECIALIST Nahed Nance MD LAB - BLOOD O RDERABLES [facility] [address] [place] [address], [place] [phone] [facility] [address] [place] [address], [facility] [phone] from Last 3 Months or Most Recently Relevant to Health Maintenance Care Teams Ingredient Scaler Helper Relationship Specialty Start Date End Date Clinic, [place] [phone] PCP - General 08/13/20
== END 2024-02-06 22:23 | disposition home or self-care (01) ==
LOC: ED 22:09
PROVIDERS: Emergency Provider Family Medicine; PCP Family Medicine
DX: L03.317 Cellulitis of buttock (principal)
CPT/HCPCS: 99283

== ENCOUNTER 2024-02-10 11:57 | Emergency (ER) | payer BC, SELFPAY ==
[2024-02-10 12:21] VITALS: BP 114/74; PULSE 90; RESP 18; TEMP 36.9; O2SAT 97; BMI 37.3
--- NOTE | 2024-02-10 12:32 | ED_ITS ---
HPI - Skin/Abscess/Foreign Bdy General Time Seen by Provider: 12:32 Date Seen: 02/10/24 Chief complaint: Skin/Abscess/Foreign Body Stated complaint: Cellulitis Time Seen by Provider: 02/10/24 12:15 Source: patient, RN notes reviewed and old records reviewed Mode of arrival: ambulatory Limitations: no limitations History of Present Illness HPI narrative: This 48-year-old male is coming in with ongoing right inner thigh pain where he was diagnosed with a cellulitis on Thursday. He has been on Bactrim and Keflex, does not feel like the area is getting better. If he is just at rest, is not really having any pain but with any ambulation there is rubbing and pain. He denies any fevers or chills. This is the same area where he had the cellulitis in November. He did have a CT done at that time, they attempted aspiration of the area and just removed some bloody fluid. He does shave the area but states he cleans the razor with alcohol. He sees Dr. Angulo at [facility]. Related Data Home Medications Medication Instructions Recorded Confirmed allopurinol 100 mg tablet 200 mg PO DAILY 11/27/23 02/10/24 fenofibrate 160 mg tablet 160 mg PO DAILY 11/27/23 02/10/24 metoprolol succinate 50 mg 50 mg PO DAILY 11/27/23 02/10/24 tablet,extended release 24 hr mirtazapine 7.5 mg tablet 7.5 mg PO QPM 11/27/23 02/10/24 Previous Rx's Medication Instructions Recorded cephalexin 500 mg capsule 500 mg PO QID #40 caps 11/27/23 sulfamethoxazole 800 1 tab PO BID 10 days #20 tabs 11/27/23 mg-trimethoprim 160 mg tablet (Bactrim DS) Allergies Allergy/AdvReac Type Severity Reaction Status Date / Time No Known Drug Allergies Allergy Verified 02/10/24 12:25 Review of Systems Narrative: As per HPI. Exam Const: Vital Signs, click to edit/add: Vital Signs - 24 hr 02/10/24 12:21 Temperature 98.4 F Pulse Rate [Right Pulse Oximeter] 90 Respiratory Rate 18 Blood Pressure [Ri ght Upper Arm] 114/74 Pulse Oximetry 97 Oxygen Delivery Me thod Room Air Patient has an area of increased darker pigmentation in the left groin region on the thigh surface. There is definite central fluctuance. He is tender in the area. I do not feel excessive warmth. The skin may have some induration along the peripheral area. Looks more darkly pigmented rather than erythematous. This certainly could be an area where he has some chronic irritation and recurrent cellulitis/abscess recurrence. The skin change does have some chronicity to me when I look at it. He does state that this is the same area that was problematic in November. Overall the area is about 3-4 cm in oblique length with the shorter diameter about 2-3 cm. It does seem to be a a small demarcated area. Documenting provider has reviewed patient's vital signs: yes Course Course ED Course: Patient consent was obtained for I&D of this area that was fluctuant. Area was cleaned with alcohol. 2ml of 1% lidocaine was injected locally into the center of the fluctuant area. An 18 guage needle was then put into the center of this area after anesthesia obtained. 3ml of thinner bloody fluid was withdrawn. Fluid did appear to be consistent with usual fluid obtained from abscesses, almost with the appearance of blood. Did review that there can be significant inflammation with irritation/infection which can trigger bloody appearance. He notes that the area drained for a few days after they placed a needle in it last time. Vital Signs Vital signs: Initial Vital Signs Temperature 98.4 F 02/10/24 12:21 Temperature Source Temporal Artery Scan 02/10/24 12:21 Pulse Rate 90 02/10/24 12:21 Pulse Rhythm Regular 02/10/24 12:21 Respiratory Rate 18 02/10/24 12:21 Blood Pressure 114/74 02/10/24 12:21 Blood Pressure Mean 87 02/10/24 12:21 Blood Pressure Position Sitting 02/10/24 12:21 Pulse Oximetry 97 02/10/24 12:21 Oxygen Delivery Method Room Air 02/10/24 12:21 Vital Signs Temperature 98.4 F 02/10/24 12:21 Pulse Rate 90 02/10/24 12:21 Respiratory Rate 18 02/10/24 12:21 Blood Pressure 114/74 02/10/24 12:21 Pulse Oximetry 97 02/10/24 12:21 Oxygen Delivery Method Room Air 02/10/24 12:21 Temperature 98.4 F 02/10/24 12:21 Pulse Rate 90 02/10/24 12:21 Respiratory Rate 18 02/10/24 12:21 Blood Pressure 114/74 02/10/24 12:21 Pulse Oximetry 97 02/10/24 12:21 Oxygen Delivery Method Room Air 02/10/24 12:21 Medications Administered Medications: Discontinued Medications Generic Name Dose Route Start Last Admin Trade Name Charles PRN Reason Stop Dose Admin Lidocaine HCl 2 ml 02/10/24 12:54 02/10/24 12:59 Lidocaine 1% Mdv INJECTION 02/10/24 12:55 2 ml ONCE ONE Administration Discharge Plan Discharge Clinical Impression: Cellulitis Patient Disposition: Home, Self-Care Condition: Stable Instructions: Cellulitis (ED), Warm Compress or Soak (ED) Additional Instructions: This area may continue to drain for the next few days which may be helpful as far as pain relief. Continue with current antibiotics. Hopefully draining this will help with resolving the area. Given that both times more bloody fluid has been drained that does not seem to be consistent with thicker drainage from an abscess, do think you should have referral to Dermatology to look at this area closer. You should follow-up with your primary care provider this week for recheck, they can discuss whether not they feel Dermatology referral would be indicated at that time. In the meantime, if you notice increasing pain, extension of the area of discoloration, development of fever or have other concerns, please seek re-evaluation. Activity Level: Activity as Tolerated Prescriptions: No Action metoprolol succinate 50 mg tablet extended release 24 hr 50 mg PO DAILY allopurinol 100 mg tablet 200 mg PO DAILY mirtazapine 7.5 mg tablet 7.5 mg PO QPM fenofibrate 160 mg tablet 160 mg PO DAILY cephalexin 500 mg capsule 500 mg PO QID Qty: 40 0RF sulfamethoxazole-trimethoprim [Bactrim DS] 800-160 mg tablet 1 tab PO BID 10 Days Qty: 20 0RF Follow Up/Referrals: Yossi Angulo MD [Primary Care Provider] - Stand Alone Forms: [employer] Info Instructions
[2024-02-10] MEDS: LIDOCAINE 1% MDV 2 ML INJECTION (12:59)
--- OUTSIDE RECORDS SUMMARY | 2024-02-10 13:15 | XMS_ITS | Clinical Summary ---
Author Name Unknown Organization [facility] Address [address] [facility] [place] [address] Care Team Providers Care Baseball Coach Name Role Phone [facility], [facility] [place] Primary Care Provider Allergies No known active [...] BASIC METABOLIC PANEL STAT 09/11/2020 2:04 PM LIFE SKILLS WORKER from Last 3 Months or Most Recently Relevant to Health Maintenance Results * (ABNORMAL) Basic metabolic panel (09/11/2020 2:04 PM LIFE SKILLS WORKER) Sodium 138 133 - 144 mmol/L 09/11/2020 2:25 PM [facility] Potassium 4.1 3.4 - 5.3 mmol/L 09/11/2020 2:25 PM [facility] Chloride 108 94 - 109 mmol/L 09/11/2020 2:25 PM [facility] Carbon Dioxide 26 20 - 32 mmol/L 09/11/2020 2:34 PM [facility] Anion Gap 4 3 - 14 mmol/L 09/11/2020 2:34 PM [facility] Glucose 112(H) 70 - 99 mg/dL 09/11/2020 2:34 PM [facility] Urea Nitrogen 22 7 - 30 mg/dL 09/11/2020 2:34 PM [facility] Creatinine 1.17 0.66 - 1.25 mg/dL 09/11/2020 2:34 PM LIFE SKILLS WORKER [facility] GFR Estimate 76 >60 mL/min/{1. 73_m2} 09/11/2020 2:34 PM LIFE SKILLS WORKER [facility] Comment: Non GFR Calc Starting 09/21/2018, serum creatinine based estimated GFR (eGFR) will be calculated using the Chronic Kidney Disease Epidemiology Collaboration (CKD-EPI) equation. GFR Estimate If Black 88 >60 mL/min/{1. 73_m2} 09/11/2020 2:34 PM LIFE SKILLS WORKER [facility] Comment: GFR Calc Starting 09/21/2018, serum creatinine based estimated GFR (eGFR) will be calculated using the Chronic Kidney Disease Epidemiology Collaboration (CKD-EPI) equation. Calcium 9.4 8.5 - 10.1 mg/dL 09/11/2020 2:34 PM LIFE SKILLS WORKER [facility] Blood specimen (specimen) 09/11/2020 2:04 PM LIFE SKILLS WORKER 09/11/2020 2:12 PM LIFE SKILLS WORKER Nahed Nance MD LAB - BLOOD O RDERABLES [facility] [address] [place] [address], [facility] [phone] [facility] [address] [place] [address], [facility] [phone] from Last 3 Months or Most Recently Relevant to Health Maintenance Care Teams Baseball Coach Relationship Specialty Start Date End Date [facility], [address] [address] PCP - General 08/13/20
--- OUTSIDE RECORDS SUMMARY | 2024-02-10 13:15 | XMS_ITS | Data Portability ---
Author Name Unknown Address [address] [place] [address] Phone [phone] Organization [facility] - (IP) Address [address] [place] [address] Care Team Providers Care Distance Education Teacher Name Role Phone VOTEL, BRENDA Primary Care Provider [phone] HUGH BHANDARI Referring Provider [phone] Assessment Encounter Date Assessment Date Assessment LastModified [...] spine No observ ation record ed. [facility] [address], [place], [address], 08/15/2020 12:28:00 08/15/20 20 08/14/2020 XR, lumba r spine No observ ation record ed. [facility] [address], [place], [address], 08/15/2020 12:28:14 Result Notes None recorded. Procedures Surgical History None recorded. Imaging Results Imaging Date Name Status LastModified by Organiz ation Details LastModified Time 08/14/2020 XR, lumbar spine completed [facility] [address], [place], [address], 08/15/2020 12:28:00 08/14/2020 XR, lumbar spine completed [facility] [address] [place], [address], 08/15/2020 12:28:14 Procedure Notes None recorded. Medical [...] Encounter Closed Date Diagnosis/Indication Diagnosis SNOMED-CT Code [id number] Brenda Dunne [facility] [address] [place] [id number] 09/18/2020 14:12:13 09/18/2020 17:22:11 [id number] Kati Espinoza [facility] [address] [place] [id number] 10/09/2020 17:27:26 10/09/2020 17:28:30 Health Concerns Section Related Observation LastModified by Organization Detai ls LastModified Time None Recorded Concern Status LastModified by Organization Details LastModified Time None Recorded Advance Directives Directive None Recorded Payers Encounter Date Sequence Insurance Name Policy Number Policy Jennings Covered Member ID Jennings Member ID Guarantor Name 10/09/2020 1 [place] ([place] - HMO[facility] [place] [id number] Ajntry G Coyle 09/18/2020 1 [place] ([place] - [place] [facility] Ajntry G Coyle [id number] Ajntry G Coyle Notes Date Note Type Note Provider Name and Address Organization Details Recorded Time 09/18/2020 text/html HPI Notes: PT NO SHOWED APPOINTMENT, NO DICTATION Brenda Dunne [facility] [place] - [facility] 09/20/2020 09:30:11 10/09/2020 text/html [...] of the operation. [place] - [facility] 10/10/2020 11:33:28
--- OUTSIDE RECORDS SUMMARY | 2024-02-10 13:15 | XMS_ITS | Clinical Summary ---
Author Name Unknown Organization [employer] [facility] Address [place], [place] [address] Care Team Providers Care Wool Sampler Name Role Phone Pcp, No Primary Care Provider Unavailabl e Allergies Active Allergy Reactions Criticality Noted Date Comments Grass Pollen Other - Describe In Comment Field 08/31/2020 Watery eyes [place] Hives 08/31/2020 Medications Medication Sig Dispensed Refills [...] Description 12/30/2023 11:00 AM CDT Office Visit [facility] [address] [place] [address] Rubin Buitrago MD Sleep Follow-up 12/30/2023 Travel 12/25/2023 Travel 12/01/2023 Patient Outreach [facility] Care Management - Care Management Navigation/[facility] [address] [place] [address] [facility] (Care Guide Community Resource Navigation/) 11/27/2023 Orders Only [facility] Scanner 1 scan: (1-Ord) [place], [place]EL[place], 11/27/2023 11/19/2023 10:25 AM FISH AND GAME CLUB MANAGER Office Visit [facility] [address] [place] [address] Yossi Angulo MD Concerns (triglycerides) 11/19/2023 Travel [...] Sex Assigned at Male 10/25/2021 7:14 PM FISH AND GAME CLUB MANAGER Gender Identity Male 10/25/2021 7:14 PM FISH AND GAME CLUB MANAGER Sexual Orientation Straight 10/25/2021 7: 14 PM FISH AND GAME CLUB MANAGER Obstetrics History Last Filed Vital Signs Vital Sign Reading Time Taken Comments Blood Pressure 148/90 12/30/2023 10:43 AM CDT Pulse 86 12/30/2023 10:43 AM CDT Temperature 36.8 ??C (98.2 ??F) 10/22/2023 10:[address] Respiratory Rate 16 08/16/2020 8:00 AM FISH AND GAME CLUB MANAGER Oxygen Saturation 97% 12/30/2023 10:43 AM CDT Inhaled Oxygen Concentration - - Weight 109.8 kg (242 lb) 12/30/2023 10:43 AM CDT Height 170.2 cm (5' 7) 12/30/2023 10:43 AM CDT Body Mass Index 37.9 12/30/2023 10:43 AM CDT Plan of Treatment Upcoming Encounters Date Type Department Care Team (Late st Contact Info) Description 02/15/2024 10:15 AM CDT Orders Only [facility] [address] [place] [address] Lab, [place] 02/17/2024 10:00 AM CDT Office Visit [facility] [address] [place] [address] Votel, Yossi Cabello MD [address] [place] [address] Health Maintenance Due Date Last Done Comments [...] Diagnosis Comments SCAN-CT INTERPRETATION 11/27/2023 12:00 AM FISH AND GAME CLUB MANAGER SDNA-FIT EXTERNAL (COLOGUARD) Routine 10/30/2023 9:15 AM FISH AND GAME CLUB MANAGER Screening for colon cancer LIPID PANEL W REFLEX MEASURED LDL Routine 10/22/2023 9:35 AM FISH AND GAME CLUB MANAGER HTN (hypertension) OCCULT BLOOD IFOBT STOOL Routine 10/24/2022 1:39 PM FISH AND GAME CLUB MANAGER Screening for colon cancer LC HIV-1/O/2, 4TH GENERATION Routine 10/23/2022 10:35 AM FISH AND GAME CLUB MANAGER Screening for HIV (human immunodeficiency virus) LC HCV ANTIBODY RFX TO QUANT PCR Routine 10/23/2022 10:35 AM FISH AND GAME CLUB MANAGER Need for hepatitis C screening test from Last 3 Months or Most Recently Relevant to Health Maintenance Results * SCAN-CT INTERPRETATION (11/27/2023 12:00 AM FISH AND GAME CLUB MANAGER) Anatomical Region Laterality Modality Other Scanner OTHER * SDNA-FIT EXTERNAL (COLOGUARD) (10/30/2023 9:15 AM FISH AND GAME CLUB MANAGER) NONINV COLON CA DNA+OCC BLD SCRN STL-IMP Negative Negative 11/06/2023 9:47 AM FISH AND GAME CLUB MANAGER [facility] (CLIA #:[id number]) Comment: NEGATIVE TEST RESULT. A negative Cologuard [...] cancer. ??Following a negative Cologuard result, the [place] Cancer Society and U.S. Multi-Society Task Force screening guidelines recommend a Cologuard re-screening interval of 3 years. References: [place] Guideline for Colorectal Cancer Screening: https://www.cancer.org/cancer/xzpho-scjizw-kcchnn/aodrqcswy-cgijxjrob-rgmnpwv/ac s-rec ommendations.html.; Raheem MCCAIN, Starla MOE, Esthela LisaK, Colorectal Cancer Screening: Recommendations for Physicians and Patients from the U.S. Multi-Society Task Force on Colorectal Cancer Screening , Am J Gastroenterology 2017; 112:6602-1421. TEST DESCRIPTION: Composite algorithmic analysis of stool [...] (Terry Sanz al, N Engl J Med 2014;370(14):0795-8053.) Cologuard may produce a false negative or false positive result (no colorectal cancer or precancerous polyp present at colonoscopy follow up). A negative Cologuard test result does not guarantee the absence of CRC or advanced adenoma (pre-cancer). The current Cologuard screening interval is every 3 years. ([place] [employer] Society and U.S. Multi-Society Task Force). Cologuard performance data in a 10,000 patient pivotal study using colonoscopy as the reference method can be accessed at the following location: www.HackerHAND/results. Additional description of the Cologuard test process, warnings and precautions can be found at www.Hachi Labsrd.Minteos. Stool specimen (specimen) (Rectum) 10/30/2023 9:15 AM FISH AND GAME CLUB MANAGER 10/31/2023 1:00 PM FISH AND GAME CLUB MANAGER Yossi Angulo MD URINE [facility] (CLIA #:[id number]) [address] [place] [address], * (ABNORMAL) LIPID PANEL W REFLEX MEASURED LDL (10/22/2023 9:35 AM FISH AND GAME CLUB MANAGER) CHOLESTEROL,TOTAL 239(H) 100 - 199 mg/dL 10/22/2023 5:13 PM FISH AND GAME CLUB MANAGER [facility] Comment: Cholesterol, Total Reference Ranges Desirable <200 mg/dL Borderline 200-239 mg/dL High >=240 mg/dL TRIGLYCERIDES 735(H) <150 mg/dL 10/22/2023 5:13 PM FISH AND GAME CLUB MANAGER [facility] HDL CHOLESTEROL 30(L) >40 mg/dL 4 5:13 PM FISH AND GAME CLUB MANAGER [facility] NON-HDL CHOLESTEROL 209(H) <145 mg/dl 10/22/2023 5:13 PM FISH AND GAME CLUB MANAGER [facility] CHOL/HDL RATIO 7.97(H) <4.50 10/22/2023 5:13 PM FISH AND GAME CLUB MANAGER [facility] LDL CHOLESTEROL 4 5:13 PM FISH AND GAME CLUB MANAGER [facility] Comment:Invalid LDL when Tri g >400. VLDL CHOLESTEROL COMMENT 10/22/2023 5:13 PM FISH AND GAME CLUB MANAGER [facility] Comment:Unable to calculate VLDL. PROVIDER ORDERED STATUS RANDOM 10/22/2023 5:13 PM FISH AND GAME CLUB MANAGER [facility] Blood BLOOD SPECIMEN / Unknown Venipuncture / Unknown 10/22/2023 9:35 AM FISH AND GAME CLUB MANAGER 10/22/2023 9:36 AM FISH AND GAME CLUB MANAGER Yossi Angulo MD CHEMISTRY [facility] [address] [place] [address], * OCCULT BLOOD IFOBT STOOL (10/24/2022 1:39 PM FISH AND GAME CLUB MANAGER) STOOL BLOOD ,IFOBT Negative Negative 11/03/2022 3:38 PM FISH AND GAME CLUB MANAGER [facility] Stool STOOL SPECIMEN / Unknown Non-Blood / Unknown 10/24/2022 1:39 PM FISH AND GAME CLUB MANAGER 11/03/2022 1:39 PM FISH AND GAME CLUB MANAGER Layo Lopez MD LABORATORY [facility] [address] [place] [address], * LC HCV ANTIBODY RFX TO QUANT PCR (10/23/2022 10:35 AM FISH AND GAME CLUB MANAGER) HCV Ab <0.1 0.0 - 0.9 s/co ratio 10/26/2022 12:07 PM FISH AND GAME CLUB MANAGER [facility] Blood BLOOD SPECIMEN / Unknown Venipuncture / Unknown 10/23/2022 10:35 AM FISH AND GAME CLUB MANAGER 10/23/2022 10:38 AM FISH AND GAME CLUB MANAGER Narrative [facility] - 10/26/2022 12:07 PM FISH AND GAME CLUB MANAGER Performed at: ??[address] ??[id number] Advertising Teacher: Rudolph Sorto MD, Phone: ??[phone] Layo Lopez MD LABORATORY Performing Organization Address [facility] Co de Phone Number [facility] [address] [place] [address] * HIV-1/O/2, 4TH GENERATION (10/23/2022 10:35 AM FISH AND GAME CLUB MANAGER) HIV Scr 4th Gen Non Reactive Non Reactive 10/26/2022 12:07 PM FISH AND GAME CLUB MANAGER [facility] Comment: HIV Negative HIV-1/HIV-2 antibodies and HIV-1 p24 antigen were NOT detected. There is no laboratory evidence of HIV infection. Blood BLOOD SPECIMEN / Unknown Venipuncture / Unknown 10/23/2022 10:35 AM FISH AND GAME CLUB MANAGER 10/23/2022 10:38 AM FISH AND GAME CLUB MANAGER Narrative [facility] - 10/26/2022 12:07 PM FISH AND GAME CLUB MANAGER Performed at: ??[address] ??[id number] Advertising Teacher: Rudolph Sorto MD, Phone: ??[phone] Layo Lopez MD LABORATORY Performing Organization Address [facility]/State/ZIP Co de Phone Number [facility] [address] [place] [address] from Last 3 Months or Most Recently Relevant to Health Maintenance Advance Directives * Full Code (Latest Code Status on File) Date Activated Date Inactivated Comments 08/13/2020 9:35 PM 08/16/2020 1:03 PM Question Answer Comments Code Status Discussion: Not Discussed Care Teams Wool Sampler Relationship Specialty Start Date End Date Pcp, No . PCP - General 09/17/23
--- OUTSIDE RECORDS SUMMARY | 2024-02-10 13:15 | XMS_ITS | Referral Summary ---
Author Name Unknown Organization [facility] [address] [facility] [place] [address] Care Team Providers Care Chinese Herbalist Name Role Phone [facility] Primary Care Provider Allergies No known active [...] BASIC METABOLIC PANEL STAT 09/11/2020 2:04 PM MACHINERY MECHANIC from Last 3 Months or Most Recently Relevant to Health Maintenance Results * (ABNORMAL) Basic metabolic panel (09/11/2020 2:04 PM MACHINERY MECHANIC) [facility] Sodium 138 133 - 144 mmol/L 09/11/2020 2:25 PM [facility] Potassium 4.1 3.4 - 5.3 mmol/L 09/11/2020 2:25 PM [facility] Chloride 108 94 - 109 mmol/L 09/11/2020 2:25 PM [facility] Carbon Dioxide 26 20 - 32 mmol/L 09/11/2020 2:34 PM [facility] Anion Gap 4 3 - 14 mmol/L 09/11/2020 2:34 PM [facility] Glucose 112(H) 70 - 99 mg/dL 09/11/2020 2:34 PM [facility] Urea Nitrogen 22 7 - 30 mg/dL 09/11/2020 2:34 PM [facility] Creatinine 1.17 0.66 - 1.25 mg/dL 09/11/2020 2:34 PM [facility] GFR Estimate 76 >60 mL/min/{1. 73_m2} 09/11/2020 2:34 PM [facility] Comment: Non GFR Calc Starting 09/21/2018, serum creatinine based estimated GFR (eGFR) will be calculated using the Chronic Kidney Disease Epidemiology Collaboration (CKD-EPI) equation. GFR Estimate If Black 88 >60 mL/min/{1. 73_m2} 09/11/2020 2:34 PM [facility] Comment: GFR Calc Starting 09/21/2018, serum creatinine based estimated GFR (eGFR) will be calculated using the Chronic Kidney Disease Epidemiology Collaboration (CKD-EPI) equation. Calcium 9.4 8.5 - 10.1 mg/dL 09/11/2020 2:34 PM [facility] Blood specimen (specimen) 09/11/2020 2:04 PM MACHINERY MECHANIC 09/11/2020 2:12 PM MACHINERY MECHANIC Nahed Nance MD LAB - BLOOD O RDERABLES [facility] [address] [address], [place] [phone] [facility] [address] [place] [address], [facility] [phone] from Last 3 Months or Most Recently Relevant to Health Maintenance Care Teams Chinese Herbalist Relationship Specialty Start Date End Date [facility], [facility] [place] [id number] PCP - General 08/13/20
== END 2024-02-10 13:27 | disposition home or self-care (01) ==
PROVIDERS: Emergency Provider Family Medicine; PCP Family Medicine
DX: L03.115 Cellulitis of right lower limb (principal)
CPT/HCPCS: 10060; 99283

== ENCOUNTER 2024-02-11 15:08 | Emergency (ER) | payer BC, SELFPAY ==
[2024-02-11 15:25] VITALS: BP 118/76; PULSE 90; RESP 16; TEMP 36.4; O2SAT 98; BMI 36.8
--- NOTE | 2024-02-11 15:26 | ED.SKABFB ---
HPI - Skin/Abscess/Foreign Bdy General Time Seen by Provider: 15:26 Date Seen: 02/11/24 Chief complaint: Skin/Abscess/Foreign Body Stated complaint: Upper R leg pain Time Seen by Provider: 02/11/24 15:25 Source: patient, RN notes reviewed and old records reviewed Mode of arrival: ambulatory Limitations: no limitations History of Present Illness HPI narrative: 48-year-old male who comes in with area of irritation and pain of the right groin. Patient says this started like a dry spot or abrasion in the groin area and has subsequently gotten worse. Patient was seen in the emergency department 5 days ago for this and was started on antibiotics, subsequently came back yesterday and this was drained with needle decompression but fluid has returned. Denies fever, chills, nausea, vomiting. Has been on Keflex and Bactrim for 5 days with no improvement. He has had similar in the past. Denies diabetes. Related Data Home Medications Medication Instructions Recorded Confirmed allopurinol 100 mg tablet 200 mg PO DAILY 11/27/23 02/10/24 fenofibrate 160 mg tablet 160 mg PO DAILY 11/27/23 02/10/24 metoprolol succinate 50 mg 50 mg PO DAILY 11/27/23 02/10/24 tablet,extended release 24 hr mirtazapine 7.5 mg tablet 7.5 mg PO QPM 11/27/23 02/10/24 Previous Rx's Medication Instructions Recorded cephalexin 500 mg capsule 500 mg PO QID #40 caps 11/27/23 sulfamethoxazole 800 1 tab PO BID 10 days #20 tabs 11/27/23 mg-trimethoprim 160 mg tablet (Bactrim DS) Allergies Allergy/AdvReac Type Severity Reaction Status Date / Time No Known Drug Allergies Allergy Verified 02/10/24 12:25 [facility] Social History Smoking Status: Unknown if ever smoked Exam Narrative: Exam Narrative: General: Well-developed and well-nourished, no acute distress Head: Atraumatic and normocephalic Eyes: Pupils are equal reactive, extraocular motions intact, conjunctiva clear ENT: External nose and ears are normal, posterior pharynx without erythema or exudate Neck: No midline cervical tenderness, full spontaneous range of motion the neck, trachea midline, no adenopathy Heart: Regular rate and rhythm no murmurs or thrills Lungs: Clear to auscultation bilaterally without wheezes or crackles Abdomen: Soft, nontender, nondistended with active bowel sounds Musculoskeletal: No tenderness, deformity, or edema Neurologic: Awake, alert, and oriented x3, no gross focal neurologic deficits, cranial nerves intact as tested Psych: Mood and affect are appropriate Skin: 3 cm x 6 cm area of hyperpigmentation in the right groin with 1 cm area of central flocculence. Const: Vital Signs, click to edit/add: Vital Signs - 24 hr 02/11/24 15:25 Temperature 97.6 F Pulse Rate [Pulse Oximeter] 90 Respiratory Rate 16 Blood Pressure [Ri ght Upper Arm] 118/76 Pulse Oximetry 98 Oxygen Delivery Me thod Room Air Course Course ED Course: Patient seen and examined, reviewed prior emergency department evaluation from February 09 when patient was seen for this same complaint, at that time needle drainage of the area was performed with reported sanguinous drainage that was not sent for culture. Patient has been on Keflex and Bactrim for five days. On exam here, vital is stable, has an area of induration and hyperpigmentation the right groin with central flocculence slow. Discussed treatment options for this, will plan for incision and drainage and will switch from Keflex and Bactrim to Augmentin doxycycline. Will also do random blood sugars patient has not had this done before and certainly with recurrent infections diabetes would be concern. Reevaluation(s) Time of Reevaluation #1: 16:05 Reevaluation #1: Blood glucose 95. Procedure: Incision and drainage, right groin abscess. Risks and benefits discussed with the patient, verbal consent was obtained. Area was anesthetized with 1 mL of lidocaine 1% with epinephrine injected subcutaneously. Area was cleaned with Betadine and a stab incision with 11 blade was made, copious dark blood obtained, no purulent drainage, area was decompressed and dressing was placed. Patient tolerated this well. Dark blood obtained from drainage would suggest that this is infected hematoma. Patient will be started on Augmentin and doxycycline, stop Keflex and Bactrim. Vital Signs Vital signs: Initial Vital Signs Temperature 97.6 F 02/11/24 15:25 Temperature Source Temporal Artery Scan 02/11/24 15:25 Pulse Rate 90 02/11/24 15:25 Pulse Rhythm Regular 02/11/24 15:25 Respiratory Rate 16 02/11/24 15:25 Blood Pressure 118/76 02/11/24 15:25 Blood Pressure Mean 90 02/11/24 15:25 Blood Pressure Position Sitting 02/11/24 15:25 Pulse Oximetry 98 02/11/24 15:25 Oxygen Delivery Method Room Air 02/11/24 15:25 Vital Signs Temperature 97.6 F 02/11/24 15:25 Pulse Rate 90 02/11/24 15:25 Respiratory Rate 16 02/11/24 15:25 Blood Pressure 118/76 02/11/24 15:25 Pulse Oximetry 98 02/11/24 15:25 Oxygen Delivery Method Room Air 02/11/24 15:25 Temperature 97.6 F 02/11/24 15:25 Pulse Rate 90 02/11/24 15:25 Respiratory Rate 16 02/11/24 15:25 Blood Pressure 118/76 02/11/24 15:25 Pulse Oximetry 98 02/11/24 15:25 Oxygen Delivery Method Room Air 02/11/24 15:25 Discharge Plan Discharge Prescriptions: No Action metoprolol succinate 50 mg tablet extended release 24 hr 50 mg PO DAILY allopurinol 100 mg tablet 200 mg PO DAILY mirtazapine 7.5 mg tablet 7.5 mg PO QPM fenofibrate 160 mg tablet 160 mg PO DAILY cephalexin 500 mg capsule 500 mg PO QID Qty: 40 0RF sulfamethoxazole-trimethoprim [Bactrim DS] 800-160 mg tablet 1 tab PO BID 10 Days Qty: 20 0RF Follow Up/Referrals: Yossi Angulo MD [Primary Care Provider] -
--- OUTSIDE RECORDS SUMMARY | 2024-02-11 15:48 | XMS_ITS | Data Portability ---
Author Name Unknown Address [address] [place] [address] Phone [phone] Organization [facility] - (IP) Address [address] [place] [address] Care Team Providers Care Jacket Preparer Name Role Phone VOTEL, BRENDA Primary Care [...] spine No observ ation record ed. [facility] [address], [place], [address], 08/15/2020 12:28:00 08/15/20 20 08/14/2020 XR, lumba r spine No observ ation record ed. [facility] [address], [place], [address], 08/15/2020 12:28:14 Result Notes None recorded. Procedures Surgical History None recorded. Imaging Results Imaging Date Name Status LastModified by Organiz ation Details LastModified Time 08/14/2020 XR, lumbar spine completed [facility] [address], [place], [address], 08/15/2020 12:28:00 08/14/2020 XR, lumbar spine completed [facility] [address] [place], [address], 08/15/2020 12:28:14 Procedure Notes None recorded. Medical [...] Encounter Closed Date Diagnosis/Indication Diagnosis SNOMED-CT Code [id number] Brenda Dunne [facility] [address] [place] [id number] 09/18/2020 14:12:13 09/18/2020 17:22:11 [id number] Kati Espinoza [facility] [address] [place] [id number] 10/09/2020 17:27:26 10/09/2020 17:28:30 Health Concerns Section Related Observation LastModified by Organization Detai ls LastModified Time None Recorded Concern Status LastModified by Organization Details LastModified Time None Recorded Advance Directives Directive None Recorded Payers Encounter Date Sequence Insurance Name Policy Number Policy Jennings Covered Member ID Jennings Member ID Guarantor Name 10/09/2020 1 [facility] (MEDICAID REPLACEMENT [facility] H[facility] [place] [id number] Ajntry G Coyle 09/18/2020 1 BS-[employer] (MEDICAID REPLACEMENT - HMO[facility] Ajnt[facility] G Coyle [id number] Ajntry G Coyle Notes Date Note Type Note Provider Name and Address Organization Details Recorded Time 09/18/2020 text/html HPI Notes: PT NO SHOWED APPOINTMENT, NO DICTATION Brenda Dunne [facility] [place] - [facility] 09/20/2020 09:30:11 10/09/2020 text/html [...] of the operation. JESSICA De [place] - [facility] 10/10/2020 11:33:28
--- OUTSIDE RECORDS SUMMARY | 2024-02-11 15:48 | XMS_ITS | Referral Summary ---
Author Name Unknown Organization [facility] [address] [place] [address] Care Team Providers Care Grade Teacher Name Role Phone [facility] Primary [facility] Provider Allergies No known active [...] BASIC METABOLIC PANEL STAT 09/11/2020 2:04 PM PAPER MACHINE TENDER from Last 3 Months or Most Recently Relevant to Health Maintenance Results * (ABNORMAL) Basic metabolic panel (09/11/2020 2:04 PM PAPER MACHINE TENDER) [facility] Sodium 138 133 - 144 mmol/L 09/11/2020 2:25 PM [facility] Potassium 4.1 3.4 - 5.3 mmol/L 09/11/2020 2:25 PM [facility] Chloride 108 94 - 109 mmol/L 09/11/2020 2:25 PM [facility] Carbon Dioxide 26 20 - 32 mmol/L 09/11/2020 2:[address] [facility] Anion Gap 4 3 - 14 mmol/L 09/11/2020 2:[address] [facility] Glucose 112(H) 70 - 99 mg/dL 09/11/2020 2:[address] [facility] Urea Nitrogen 22 7 - 30 mg/dL 09/11/2020 2:[address] [facility] Creatinine 1.17 0.66 - 1.25 mg/dL 09/11/2020 2:[address] [facility] GFR Estimate 76 >60 mL/min/{1. 73_m2} 09/11/2020 2:[address] [facility] Comment: Non GFR Calc Starting 09/21/2018, serum creatinine based estimated GFR (eGFR) will be calculated using the Chronic Kidney Disease Epidemiology Collaboration (CKD-EPI) equation. GFR Estimate If Black 88 >60 mL/min/{1. 73_m2} 09/11/2020 2:[address] [facility] Comment: GFR Calc Starting 09/21/2018, serum creatinine based estimated GFR (eGFR) will be calculated using the Chronic Kidney Disease Epidemiology Collaboration (CKD-EPI) equation. Calcium 9.4 8.5 - 10.1 mg/dL 09/11/2020 2:[address] [facility] Blood specimen (specimen) 09/11/2020 2:04 PM PAPER MACHINE TENDER 09/11/2020 2:12 PM PAPER MACHINE TENDER Nahed Nance MD LAB - BLOOD O RDERABLES [facility] [address] [address], [place] [phone] [facility] [address] [address], [facility] [phone] from Last 3 Months or Most Recently Relevant to Health Maintenance Care Teams Grade Teacher Relationship Specialty Start Date End Date Clinic, [facility] [place] [id number] PCP - General 08/13/20
--- OUTSIDE RECORDS SUMMARY | 2024-02-11 15:48 | XMS_ITS | Clinical Summary ---
Author Name Unknown Organization [facility] Address [address] [facility] [place] [address] Care Team Providers Care Data Control Clerk Supervisor Name Role Phone Clinic, [facility] Primary Care Provider Allergies No known active [...] BASIC METABOLIC PANEL STAT 09/11/2020 2:04 PM SUPERINTENDENT RECREATION from Last 3 Months or Most Recently Relevant to Health Maintenance Results * (ABNORMAL) Basic metabolic panel (09/11/2020 2:04 PM SUPERINTENDENT RECREATION) Sodium 138 133 - 144 mmol/L 09/11/2020 2:[address] [facility] Potassium 4.1 3.4 - 5.3 mmol/L 09/11/2020 2:[address] [facility] Chloride 108 94 - 109 mmol/L 09/11/2020 2:[address] [facility] Carbon Dioxide 26 20 - 32 mmol/L 09/11/2020 2:34 PM [facility] Anion Gap 4 3 - 14 mmol/L 09/11/2020 2:34 PM [facility] Glucose 112(H) 70 - 99 mg/dL 09/11/2020 2:34 PM [facility] Urea Nitrogen 22 7 - 30 mg/dL 09/11/2020 2:34 PM [facility] Creatinine 1.17 0.66 - 1.25 mg/dL 09/11/2020 2:[address] [facility] GFR Estimate 76 >60 mL/min/{1. 73_m2} 09/11/2020 2:[address] [facility] Comment: Non GFR Calc Starting 09/21/2018, serum creatinine based estimated GFR (eGFR) will be calculated using the Chronic Kidney Disease Epidemiology Collaboration (CKD-EPI) equation. GFR Estimate If Black 88 >60 mL/min/{1. 73_m2} 09/11/2020 2:[address] [facility] Comment: GFR Calc Starting 09/21/2018, serum creatinine based estimated GFR (eGFR) will be calculated using the Chronic Kidney Disease Epidemiology Collaboration (CKD-EPI) equation. Calcium 9.4 8.5 - 10.1 mg/dL 09/11/2020 2:[address] [facility] Blood specimen (specimen) 09/11/2020 2:04 PM SUPERINTENDENT RECREATION 09/11/2020 2:12 PM SUPERINTENDENT RECREATION Nahed Nance MD LAB - BLOOD O RDERABLES [facility] [address] [place] [address], [facility] [phone] [facility] [address] [place] [address], [facility] [phone] from Last 3 Months or Most Recently Relevant to Health Maintenance Care Teams Data Control Clerk Supervisor Relationship Specialty Start Date End Date [facility], [address] [address] PCP - General 08/13/20
--- OUTSIDE RECORDS SUMMARY | 2024-02-11 15:48 | XMS_ITS | Clinical Summary ---
Author Name Unknown Organization [facility] Address [place], [place] [address] Care Team Providers Care Drill Press Tender Name Role Phone Pcp, No Primary Care Provider Unavailabl e Allergies Active Allergy Reactions Criticality Noted Date Comments Grass Pollen Other - Describe In Comment Field 08/31/2020 Watery eyes Vinnie Hives 08/31/2020 Medications Medication Sig Dispensed Refills [...] Encounters Date Type Department Care Team Description 02/10/2024 Travel 12/30/2023 11:00 AM CDT Office Visit [facility] [address] [place] [address] Rubin Buitrago MD Sleep Follow-up 12/30/2023 Travel 12/25/2023 Travel 12/01/2023 Patient Outreach [facility] Management - Care Management Navigation/[facility] [address] [place] [address] [facility] (Care Guide Community Resource Navigation/) 11/27/2023 Orders Only [facility] Scanner 1 scan: (1-Ord) AMBLER, PELVIS, 11/27/2023 11/19/2023 10:25 AM SOCIAL CONTACT WORKER Office Visit [facility] [address] [place] [address] Yossi Angulo MD Concerns (triglycerides) 11/19/2023 Travel [...] Sex Assigned at Male 10/25/2021 7:14 PM SOCIAL CONTACT WORKER Gender Identity Male 10/25/2021 7:14 PM SOCIAL CONTACT WORKER Sexual Orientation Straight 10/25/2021 7: 14 PM SOCIAL CONTACT WORKER Obstetrics History Last Filed Vital Signs Vital Sign Reading Time Taken Comments Blood Pressure 148/90 12/30/2023 10:43 AM CDT Pulse 86 12/30/2023 10:43 AM CDT Temperature 36.8 ??C (98.2 ??F) 10/22/2023 10:[address] Respiratory Rate 16 08/16/2020 8:00 AM SOCIAL CONTACT WORKER Oxygen Saturation 97% 12/30/2023 10:43 AM CDT Inhaled Oxygen Concentration - - Weight 109.8 kg (242 lb) 12/30/2023 10:43 AM CDT Height 170.2 cm (5' 7) 12/30/2023 10:43 AM CDT Body Mass Index 37.9 12/30/2023 10:43 AM CDT Plan of Treatment Upcoming Encounters Date Type Department Care Team (Late st Contact Info) Description 02/15/2024 10:15 AM CDT Orders Only [facility] [address] [place] [address] Lab, [place] 02/17/2024 10:00 AM CDT Office Visit [facility] [address] [place] [address] Votel, Yossi Cabello MD [address] [place] [address] Health Maintenance Due Date Last Done Comments [...] Diagnosis Comments SCAN-CT INTERPRETATION 11/27/2023 12:00 AM SOCIAL CONTACT WORKER SDNA-FIT EXTERNAL (COLOGUARD) Routine 10/30/2023 9:15 AM SOCIAL CONTACT WORKER Screening for colon cancer LIPID PANEL W REFLEX MEASURED LDL Routine 10/22/2023 9:35 AM SOCIAL CONTACT WORKER HTN (hypertension) OCCULT BLOOD IFOBT STOOL Routine 10/24/2022 1:39 PM SOCIAL CONTACT WORKER Screening for colon cancer LC HIV-1/O/2, 4TH GENERATION Routine 10/23/2022 10:35 AM SOCIAL CONTACT WORKER Screening for HIV (human immunodeficiency virus) LC HCV ANTIBODY RFX TO QUANT PCR Routine 10/23/2022 10:35 AM SOCIAL CONTACT WORKER Need for hepatitis C screening test from Last 3 Months or Most Recently Relevant to Health Maintenance Results * SCAN-CT INTERPRETATION (11/27/2023 12:00 AM SOCIAL CONTACT WORKER) Anatomical Region Laterality Modality Other Scanner OTHER * SDNA-FIT EXTERNAL (COLOGUARD) (10/30/2023 9:15 AM SOCIAL CONTACT WORKER) NONINV COLON CA DNA+OCC BLD SCRN STL-IMP Negative Negative 11/06/2023 9:47 AM SOCIAL CONTACT WORKER [facility] (CLIA #:[id number]) Comment: NEGATIVE TEST RESULT. A negative Cologuard [...] cancer. ??Following a negative Cologuard result, the [employer] Cancer Society and U.S. Multi-Society Task Force screening guidelines recommend a Cologuard re-screening interval of 3 years. References: [employer] Cancer Society Guideline for Colorectal Cancer Screening: https://www.cancer.org/cancer/zigse-ftnzjs-vwkpfr/dbovfcpxr-swzqcuhtz-vhxgykd/ac s-rec ommendations.html.; Raheem MCCAIN, Starla MOE, Esthela LisaK, Colorectal Cancer Screening: Recommendations for Physicians and Patients from the U.S. Multi-Society Task Force on Colorectal Cancer Screening , Am J Gastroenterology 2017; 112:5502-2280. TEST DESCRIPTION: Composite algorithmic analysis of stool [...] screened with both Cologuard and colonoscopy. (Terry Tapia et al, N Engl J Med 2014;370(14):8301-9815.) Cologuard may produce a false negative or false positive result (no colorectal cancer or precancerous polyp present at colonoscopy follow up). A negative Cologuard test result does not guarantee the absence of CRC or advanced adenoma (pre-cancer). The current Cologuard screening interval is every 3 years. ([employer] Cancer Society and U.S. Multi-Society Task Force). Cologuard performance data in a 10,000 patient pivotal study using colonoscopy as the reference method can be accessed at the following location: www.HelloTel/results. Additional description of the Cologuard test process, warnings and precautions can be found at www.Medisync Bioservicesrd.Polyplus-transfection. Stool specimen (specimen) (Rectum) 10/30/2023 9:15 AM SOCIAL CONTACT WORKER 10/31/2023 1:00 PM SOCIAL CONTACT WORKER Yossi Angulo MD URINE [facility] (CLIA #:[id number]) [address] [place] [address], * (ABNORMAL) LIPID PANEL W REFLEX MEASURED LDL (10/22/2023 9:35 AM SOCIAL CONTACT WORKER) CHOLESTEROL,TOTAL 239(H) 100 - 199 mg/dL 10/22/2023 5:13 PM SOCIAL CONTACT WORKER [employer] [facility] Comment: Cholesterol, Total Reference Ranges Desirable <200 mg/dL Borderline 200-239 mg/dL High >=240 mg/dL TRIGLYCERIDES 735(H) <150 mg/dL 10/22/2023 5:13 PM SOCIAL CONTACT WORKER [facility] HDL CHOLESTEROL 30(L) >40 mg/dL 4 5:13 PM SOCIAL CONTACT WORKER [facility] NON-HDL CHOLESTEROL 209(H) <145 mg/dl 10/22/2023 5:13 PM SOCIAL CONTACT WORKER [facility] CHOL/HDL RATIO 7.97(H) <4.50 10/22/2023 5:13 PM SOCIAL CONTACT WORKER [facility] LDL CHOLESTEROL 4 5:13 PM SOCIAL CONTACT WORKER [facility] Comment:Invalid LDL when Tri g >400. VLDL CHOLESTEROL COMMENT 10/22/2023 5:13 PM SOCIAL CONTACT WORKER [facility] Comment:Unable to calculate VLDL. PROVIDER ORDERED STATUS RANDOM 10/22/2023 5:13 PM [facility] Blood BLOOD SPECIMEN / Unknown Venipuncture / Unknown 10/22/2023 9:35 AM SOCIAL CONTACT WORKER 10/22/2023 9:36 AM SOCIAL CONTACT WORKER Yossi Angulo MD CHEMISTRY [facility] [address] [place] [address], * OCCULT BLOOD IFOBT STOOL (10/24/2022 1:39 PM SOCIAL CONTACT WORKER) STOOL BLOOD ,IFOBT Negative Negative 11/03/2022 3:38 PM SOCIAL CONTACT WORKER [facility] Stool STOOL SPECIMEN / Unknown Non-Blood / Unknown 10/24/2022 1:39 PM SOCIAL CONTACT WORKER 11/03/2022 1:39 PM SOCIAL CONTACT WORKER Layo Lopez MD LABORATORY [facility] [address] [place] [address], * LC HCV ANTIBODY RFX TO QUANT PCR (10/23/2022 10:35 AM SOCIAL CONTACT WORKER) HCV Ab <0.1 0.0 - 0.9 s/co ratio 10/26/2022 12:07 PM SOCIAL CONTACT WORKER [facility]) Blood BLOOD SPECIMEN / Unknown Venipuncture / Unknown 10/23/2022 10:35 AM SOCIAL CONTACT WORKER 10/23/2022 10:38 AM SOCIAL CONTACT WORKER [facility] ([facility]) - 10/26/2022 12:07 PM SOCIAL CONTACT WORKER Performed at: ??[address] ??[id number] Outside Property Agent: Rudolph Sorto MD, Phone: ??[phone] Layo Lopez MD LABORATORY Performing Organization Address City/[facility]/ZIP Co de Phone Number [facility] ([facility]) [address] [place] [address] * LC HIV-1/O/2, 4TH GENERATION (10/23/2022 10:35 AM SOCIAL CONTACT WORKER) HIV Scr 4th Gen Non Reactive Non Reactive 10/26/2022 12:07 PM SOCIAL CONTACT WORKER [facility] ([facility]) Comment: HIV Negative HIV-1/HIV-2 antibodies and HIV-1 p24 antigen were NOT detected. There is no laboratory evidence of HIV infection. Blood BLOOD SPECIMEN / Unknown Venipuncture / Unknown 10/23/2022 10:35 AM SOCIAL CONTACT WORKER 10/23/2022 10:38 AM SOCIAL CONTACT WORKER [facility] ([facility]) - 10/26/2022 12:07 PM SOCIAL CONTACT WORKER Performed at: ??[address] ??[id number] Outside Property Agent: Rudolph Sorto MD, Phone: ??[phone] Layo Lopez MD LABORATORY [facility] ([facility]) [address] [place] [address] from Last 3 Months or Most Recently Relevant to Health Maintenance Advance Directives * Full Code (Latest Code Status on File) Date Activated Date Inactivated Comments 08/13/2020 9:35 PM 08/16/2020 1:03 PM Question Answer Comments Code Status Discussion: Not Discussed Care Teams Drill Press Tender Relationship Specialty Start Date End Date Pcp, No . PCP - General 09/17/23
[2024-02-23 09:29] LABS: Glucose, Point-of-Care* 95 mg/dl (60-115)
== END 2024-02-11 16:15 | disposition home or self-care (01) ==
PROVIDERS: Emergency Provider Family Medicine; PCP Family Medicine
DX: L02.415 Cutaneous abscess of right lower limb (principal)
CPT/HCPCS: 10060; 82947; 87070; 99283

== ENCOUNTER 2024-02-13 15:29 | Emergency (ER) | payer BC, SELFPAY ==
[2024-02-13 15:33] VITALS: BP 131/78; PULSE 92; RESP 18; TEMP 37.1; O2SAT 97; BMI 36.8
--- NOTE | 2024-02-13 16:04 | ED_ITS ---
HPI - Skin/Abscess/Foreign Bdy General Time Seen by Provider: 16:04 Date Seen: 02/13/24 Chief complaint: Skin/Abscess/Foreign Body Stated complaint: celulitis, fluid filled ball on right inner thigh Time Seen by Provider: 02/13/24 15:59 Source: patient, RN notes reviewed and old records reviewed Mode of arrival: ambulatory Limitations: no limitations History of Present Illness HPI narrative: This 48-year-old male is coming in for his 4th time for right groin cellulitis/abnormality. He was seen on February 05, put on Keflex and Bactrim. I saw him back on the , did a needle aspiration with plans to do an incision and drainage. There was central fluctuance at the time I saw him. I withdrew just dark bloody fluid, had no purulent component that I could see, did not send for cultures as he had been on antibiotics from most 5 days at that point. He came back on the , had incision done, dark bloody fluid was returned, was switched to Augmentin and doxycycline. He notes that he is not feeling sick at all, no fevers, feels fine. There is just a little irritation up along the most superior point of this area in the groin. No purulent drainage, no excessive bleeding. He just feels like it is not completely going away. Patient did have a normal point of care glucose of 95 last visit. Tetanus up to date: yes Related Data Home Medications Medication Instructions Recorded Confirmed allopurinol 100 mg tablet 200 mg PO DAILY 11/27/23 02/10/24 fenofibrate 160 mg tablet 160 mg PO DAILY 11/27/23 02/10/24 metoprolol succinate 50 mg 50 mg PO DAILY 11/27/23 02/10/24 tablet,extended release 24 hr mirtazapine 7.5 mg tablet 7.5 mg PO QPM 11/27/23 02/10/24 Allergies Allergy/AdvReac Type Severity Reaction Status Date / Time No Known Drug Allergies Allergy Verified 02/10/24 12:25 Review of Systems Narrative: As per HPI. PFSH PFS Social History Smoking Status: Unknown if ever smoked Do you use any of these nicotine containing products: None Second hand tobacco smoke exposure: No How often do you have a drink containing alcohol: never How often do you have six or more drinks on one occasion: Never AUDIT-C Alcohol total score: 0 Non-prescribed substance use: denies use service: No Exam Const: Vital Signs, click to edit/add: Vital Signs - 24 hr 02/13/24 15:33 Temperature 98.7 F Pulse Rate [Pulse Oximeter] 92 Respiratory Rate 18 Blood Pressure [Ri ght Upper Arm] 131/78 Pulse Oximetry 97 Oxygen Delivery Me thod Room Air Patient is alert, interactive, no apparent distress, seen exam room 5. CV regular rate and rhythm, no murmur. He is afebrile, vitals reviewed. In the reflection of his right groin, has a darkly pigmented area with a small central opening that looks to be clean dry and intact. There is no fluctuance. He has some mild induration along the periphery but no recurrence of any fluctuant area. There is no significant heat, he does have increased pigmentation but no erythema, skin itself does not seem to be indurated, induration seems to be more in the deeper structures. He does not have any tenderness, cannot express any fluid. This overall looks stable in certainly does not look worse, fluctuance has resolved from the last time I palpated. Documenting provider has reviewed patient's vital signs: yes Course Course ED Course: Reviewed with patient that I will look at his last note, likely talk to our general surgeon about him. Reevaluation(s) Time of Reevaluation #1: 16:27 Reevaluation #1: Reviewed with patient that I had spoken with surgery. This is likely a recurrent skin issue, possibly a cyst or some type of inflammatory condition within the groin on this side. I do not feel that he needs to change antibiotics. He agrees that overall the pain is better. The apex of the lesion closest to the groin maybe just has a little discomfort. He is overall absolutely not worse on questioning, he is just concerned as it is not completely going away. We discussed signs and symptoms for return, otherwise, see general surgery at [facility] next week. He sees Dr. Angulo and is going in for blood work on Thursday. Consultations Consultation #1: With our general surgeon on-call Dr. Helton. Reviewed case with her. She agrees with surgical referral for further treatment. I do not feel that he needs to have antibiotics changed, feel that he may not even need antibiotics at this point. This is likely recurrent cyst or skin inflammatory condition in this area. Time: 16:05 Vital Signs Vital signs: Initial Vital Signs Temperature 98.7 F 02/13/24 15:33 Temperature Source Temporal Artery Scan 02/13/24 15:33 Pulse Rate 92 02/13/24 15:33 Respiratory Rate 18 02/13/24 15:33 Blood Pressure 131/78 02/13/24 15:33 Blood Pressure Mean 95 02/13/24 15:33 Blood Pressure Position Supine 02/13/24 15:33 Pulse Oximetry 97 02/13/24 15:33 Oxygen Delivery Method Room Air 02/13/24 15:33 Vital Signs Temperature 98.7 F 02/13/24 15:33 Pulse Rate 92 02/13/24 15:33 Respiratory Rate 18 02/13/24 15:33 Blood Pressure 131/78 02/13/24 15:33 Pulse Oximetry 97 02/13/24 15:33 Oxygen Delivery Method Room Air 02/13/24 15:33 Temperature 98.7 F 02/13/24 15:33 Pulse Rate 92 02/13/24 15:33 Respiratory Rate 18 02/13/24 15:33 Blood Pressure 131/78 02/13/24 15:33 Pulse Oximetry 97 02/13/24 15:33 Oxygen Delivery Method Room Air 02/13/24 15:33 Discharge Plan Discharge Clinical Impression: Cellulitis Qualifiers: Site of cellulitis: unspecified site Qualified Code(s): L03.90 - Cellulitis, unspecified Patient Disposition: Home, Self-Care Condition: Stable Instructions: Cellulitis (ED) Additional Instructions: Continue to shower to keep the area clean. Would complete the Augmentin and doxycycline that you have been switch to. Need to ask the clinic to get you scheduled with General surgery for further evaluation and treatment of this right groin area. You can let them know that I spoke with Dr. Helton on Thursday and she agreed that you should be seen this next week. It can be any of the surgical providers were you can fit into the schedule next week. Minimize aggravating activities. Continue to monitor for increasing size, swelling, erythema, worsening pain or development of fever with any of these symptoms and seek re-evaluation if there are concerns for these. Activity Level: Activity as Tolerated Prescriptions: No Action metoprolol succinate 50 mg tablet extended release 24 hr 50 mg PO DAILY allopurinol 100 mg tablet 200 mg PO DAILY mirtazapine 7.5 mg tablet 7.5 mg PO QPM fenofibrate 160 mg tablet 160 mg PO DAILY Follow Up/Referrals: Yossi Angulo MD [Primary Care Provider] - Stand Alone Forms: [employer] Info Instructions
--- OUTSIDE RECORDS SUMMARY | 2024-02-13 16:42 | XMS_ITS | Clinical Summary ---
Author Name Unknown Organization [facility] Address [address] [facility] [place] [address] Care Team Providers Care Numerical Control Machine Operator Name Role Phone Clinic, [facility] Primary Care Provider Allergies No known active [...] BASIC METABOLIC PANEL STAT 09/11/2020 2:04 PM SHOT PEENING OPERATOR from Last 3 Months or Most Recently Relevant to Health Maintenance Results * (ABNORMAL) Basic metabolic panel (09/11/2020 2:04 PM SHOT PEENING OPERATOR) Sodium 138 133 - 144 mmol/L 09/11/2020 2:25 PM [facility] Potassium 4.1 3.4 - 5.3 mmol/L 09/11/2020 2:25 PM [facility] Chloride 108 94 - 109 mmol/L 09/11/2020 2:25 PM [facility] Carbon Dioxide 26 20 - 32 mmol/L 09/11/2020 2:34 PM [facility] Anion Gap 4 3 - 14 mmol/L 09/11/2020 2:34 PM [facility] Glucose 112(H) 70 - 99 mg/dL 09/11/2020 2:34 PM [facility] Urea Nitrogen 22 7 - 30 mg/dL 09/11/2020 2:34 PM [facility] Creatinine 1.17 0.66 - 1.25 mg/dL 09/11/2020 2:34 PM SHOT PEENING OPERATOR [facility] GFR Estimate 76 >60 mL/min/{1. 73_m2} 09/11/2020 2:34 PM SHOT PEENING OPERATOR [facility] Comment: Non GFR Calc Starting 09/21/2018, serum creatinine based estimated GFR (eGFR) will be calculated using the Chronic Kidney Disease Epidemiology Collaboration (CKD-EPI) equation. GFR Estimate If Black 88 >60 mL/min/{1. 73_m2} 09/11/2020 2:34 PM SHOT PEENING OPERATOR [facility] Comment: GFR Calc Starting 09/21/2018, serum creatinine based estimated GFR (eGFR) will be calculated using the Chronic Kidney Disease Epidemiology Collaboration (CKD-EPI) equation. Calcium 9.4 8.5 - 10.1 mg/dL 09/11/2020 2:34 PM SHOT PEENING OPERATOR [facility] Blood specimen (specimen) 09/11/2020 2:04 PM SHOT PEENING OPERATOR 09/11/2020 2:12 PM SHOT PEENING OPERATOR Nahed Nance MD LAB - BLOOD O RDERABLES [facility] [address] [place] [address], [facility] [phone] [facility] [address] [place] [address], [facility] [phone] from Last 3 Months or Most Recently Relevant to Health Maintenance Care Teams Numerical Control Machine Operator Relationship Specialty Start Date End Date [facility], [address] [address] PCP - General 08/13/20
--- OUTSIDE RECORDS SUMMARY | 2024-02-13 16:42 | XMS_ITS | Referral Summary ---
Author Name Unknown Organization [facility] [address] [place] [address] Care Team Providers Care Certified Phlebotomy Technician Name Role Phone [facility] Primary Care Provider Allergies No known active [...] BASIC METABOLIC PANEL STAT 09/11/2020 2:04 PM DIRECTOR OF ENVIRONMENTAL SERVICES from Last 3 Months or Most Recently Relevant to Health Maintenance Results * (ABNORMAL) Basic metabolic panel (09/11/2020 2:04 PM DIRECTOR OF ENVIRONMENTAL SERVICES) [facility] Sodium 138 133 - 144 mmol/L 09/11/2020 2:25 PM [facility] Potassium 4.1 3.4 - 5.3 mmol/L 09/11/2020 2:25 PM [facility] Chloride 108 94 - 109 mmol/L 09/11/2020 2:25 PM [facility] Carbon Dioxide 26 20 - 32 mmol/L 09/11/2020 2:34 PM [facility] Anion Gap 4 3 - 14 mmol/L 09/11/2020 2:34 PM [facility] Glucose 112(H) 70 - 99 mg/dL 09/11/2020 2:34 PM [facility] Urea Nitrogen 22 7 - 30 mg/dL 09/11/2020 2:34 PM [facility] Creatinine 1.17 0.66 - 1.25 mg/dL 09/11/2020 2:34 PM [facility] GFR Estimate 76 >60 mL/min/{1. 73_m2} 09/11/2020 2:34 PM [facility] Comment: Non GFR Calc Starting 09/21/2018, serum creatinine based estimated GFR (eGFR) will be calculated using the Chronic Kidney Disease Epidemiology Collaboration (CKD-EPI) equation. GFR Estimate If Black 88 >60 mL/min/{1. 73_m2} 09/11/2020 2:34 PM [facility] Comment: GFR Calc Starting 09/21/2018, serum creatinine based estimated GFR (eGFR) will be calculated using the Chronic Kidney Disease Epidemiology Collaboration (CKD-EPI) equation. Calcium 9.4 8.5 - 10.1 mg/dL 09/11/2020 2:34 PM [facility] Blood specimen (specimen) 09/11/2020 2:04 PM DIRECTOR OF ENVIRONMENTAL SERVICES 09/11/2020 2:12 PM DIRECTOR OF ENVIRONMENTAL SERVICES Nahed Nance MD LAB - BLOOD O RDERABLES [facility] [address] [address], [place] [phone] [facility] [address] [address], [facility] [[email or web address]] [phone] from Last 3 Months or Most Recently Relevant to Health Maintenance Care Teams Certified Phlebotomy Technician Relationship Specialty Start Date End Date Clinic, [facility] [place] [phone] PCP - General 08/13/20
--- OUTSIDE RECORDS SUMMARY | 2024-02-13 16:42 | XMS_ITS | Data Portability ---
Author Name Unknown Address [address] [place] [address] Phone [phone] Organization [facility] - (IP) Address [address] [place] [address] Care Team Providers Care Medical Doctor Md/Medical Director Name Role Phone VOTEL, BRENDA Primary Care [...] Range Abnormal Flag LastModifiedBy Organization Detail LastModifiedTime 08/15/20 20 08/14/2020 XR, lumba r spine No observ [facility]ion [facility] [address], [place], [address], 08/15/2020 12:28:00 08/15/20 20 08/14/2020 XR, lumba r spine No observ ation record ed. [facility] [address], [place], [address], 08/15/2020 12:28:14 Result Notes None recorded. Procedures Surgical History None recorded. Imaging Results Imaging Date Name Status LastModified by Organiz ation Details LastModified Time 08/14/2020 XR, lumbar spine completed [facility] [address], [place], [address], 08/15/2020 12:28:00 08/14/2020 XR, lumbar spine completed [facility] [address] [place], [address], 08/15/2020 12:28:14 Procedure Notes None recorded. Medical [...] Encounter Closed Date Diagnosis/Indication Diagnosis SNOMED-CT Code [id number] Brenda Dunne [facility] [address] [place] [id number] 09/18/2020 14:12:13 09/18/2020 17:22:11 [id number] Kati Espinoza [facility] [address] [place] [id number] 10/09/2020 17:27:26 10/09/2020 17:28:30 Health Concerns Section Related Observation LastModified by Organization Detai ls LastModified Time None Recorded Concern Status LastModified by Organization Details LastModified Time None Recorded Advance Directives Directive None Recorded Payers Encounter Date Sequence Insurance Name Policy Number Policy Jennings Covered Member ID Jennings Member ID Guarantor Name 10/09/2020 1 [id number] - [place] [facility] [place] [id number] Ajntry G Coyle 09/18/2020 1 [id number] ([place] - [place]) [facility] Aj[facility]ry G Coyle [id number] Ajntry G Coyle Notes Date Note Type Note Provider Name and Address Organization Details Recorded Time 09/18/2020 text/html HPI Notes: PT NO SHOWED APPOINTMENT, NO DICTATION Brenda Dunne [facility] [place] [facility] 09/20/2020 09:30:11 10/09/2020 text/html [...] of the operation. JESSICA [facility] [place] - [facility] 10/10/2020 11:33:28
--- OUTSIDE RECORDS SUMMARY | 2024-02-13 16:42 | XMS_ITS | Clinical Summary ---
Author Name Unknown Organization [facility] Address [place], [place] [address] Care Team Providers Care Car Wrecker Name Role Phone Pcp, No Primary Care Provider Unavailabl e Allergies Active Allergy Reactions Criticality Noted Date Comments Grass Pollen Other - Describe In Comment Field 08/31/2020 Watery eyes Scenic Oaks Hives 08/31/2020 Medications Medication Sig Dispensed Refills [...] Encounters Date Type Department Care Team Description 02/12/2024 Travel 02/10/2024 Travel 12/30/2023 11:00 AM CDT Office Visit [facility] [address] [facility] [place] [address] Rubin Buitrago MD Sleep Follow-up 12/30/2023 Travel 12/25/2023 Travel 12/01/[address] [facility] Management - Care Management Navigation/[facility] [address] [place] [address] [facility] (Care Guide Community Resource Navigation/) 11/27/2023 Orders Only [facility] Scanner 1 scan: (1-Ord) LAUREL, PELVIS, 11/27/2023 11/19/2023 10:25 AM XEROX MACHINE OPERATOR Office Visit [facility] [address] [place] [address] Yossi Angulo MD Concerns (triglycerides) 11/19/2023 Travel [...] Sex Assigned at Male 10/25/2021 7:14 PM XEROX MACHINE OPERATOR Gender Identity Male 10/25/2021 7:14 PM XEROX MACHINE OPERATOR Sexual Orientation Straight 10/25/2021 7: 14 PM XEROX MACHINE OPERATOR Obstetrics History Last Filed Vital Signs Vital Sign Reading Time Taken Comments Blood Pressure 148/90 12/30/2023 10:43 AM CDT Pulse 86 12/30/2023 10:43 AM CDT Temperature 36.8 ??C (98.2 ??F) 10/22/2023 10:[address] Respiratory Rate 16 08/16/2020 8:00 AM XEROX MACHINE OPERATOR Oxygen Saturation 97% 12/30/2023 10:43 AM CDT Inhaled Oxygen Concentration - - Weight 109.8 kg (242 lb) 12/30/2023 10:43 AM CDT Height 170.2 cm (5' 7) 12/30/2023 10:43 AM CDT Body Mass Index 37.9 12/30/2023 10:43 AM CDT Plan of Treatment Upcoming Encounters Date Type Department Care Team (Late st Contact Info) Description 02/15/2024 10:15 AM CDT Orders Only [facility] [address] [place] [address] Lab, [place] 02/17/2024 10:00 AM CDT Office Visit [facility] [address] [place] [address] VotelYossi MD [address] [place] [address] Health Maintenance Due Date Last Done Comments COVID-19 vaccine series (2022- season) 2023 Influenza for age 9-49 06/05/2024 [...] Diagnosis Comments SCAN-CT INTERPRETATION 11/27/2023 12:00 AM XEROX MACHINE OPERATOR SDNA-FIT EXTERNAL (COLOGUARD) Routine 10/30/2023 9:15 AM XEROX MACHINE OPERATOR Screening for colon cancer LIPID PANEL W REFLEX MEASURED LDL Routine 10/22/2023 9:35 AM XEROX MACHINE OPERATOR HTN (hypertension) OCCULT BLOOD IFOBT STOOL Routine 10/24/2022 1:39 PM XEROX MACHINE OPERATOR Screening for colon cancer LC HIV-1/O/2, 4TH GENERATION Routine 10/23/2022 10:35 AM XEROX MACHINE OPERATOR Screening for HIV (human immunodeficiency virus) LC HCV ANTIBODY RFX TO QUANT PCR Routine 10/23/2022 10:35 AM XEROX MACHINE OPERATOR Need for hepatitis C screening test from Last 3 Months or Most Recently Relevant to Health Maintenance Results * SCAN-CT INTERPRETATION (11/27/2023 12:00 AM XEROX MACHINE OPERATOR) Anatomical Region Laterality Modality Other Scanner OTHER * SDNA-FIT EXTERNAL (COLOGUARD) (10/30/2023 9:15 AM XEROX MACHINE OPERATOR) NONINV COLON CA DNA+OCC BLD SCRN STL-IMP Negative Negative 11/06/2023 9:47 AM XEROX MACHINE OPERATOR [facility] (CLIA #:[id number]) Comment: NEGATIVE TEST RESULT. A negative Cologuard [...] cancer. ??Following a negative Cologuard result, the [place] [employer] Society and U.S. Multi-Society Task Force screening guidelines recommend a Cologuard re-screening interval of 3 years. References: [place] [employer] Guideline for Colorectal Cancer Screening: https://www.cancer.org/cancer/rkrod-kceemr-xbdbum/bodhwewgs-wvntieroi-hhvnwal/ac s-rec ommendations.html.; Raheem MCCAIN, Starla MOE, Esthela LisaK, Colorectal Cancer Screening: Recommendations for Physicians and Patients from the U.S. Multi-Society Task Force on Colorectal Cancer Screening , Am J Gastroenterology 2017; 112:7144-0345. TEST DESCRIPTION: Composite algorithmic analysis of stool [...] (Terry Sanz al, N Engl J Med 2014;370(14):0882-4106.) Cologuard may produce a false negative or false positive result (no colorectal cancer or precancerous polyp present at colonoscopy follow up). A negative Cologuard test result does not guarantee the absence of CRC or advanced adenoma (pre-cancer). The current Cologuard screening interval is every 3 years. ([place] [employer] Society and U.S. Multi-Society Task Force). Cologuard performance data in a 10,000 patient pivotal study using colonoscopy as the reference method can be accessed at the following location: www.placespourtous.com/results. Additional description of the Cologuard test process, warnings and precautions can be found at www.Visualmarksrd.com. Stool specimen (specimen) (Rectum) 10/30/2023 9:15 AM XEROX MACHINE OPERATOR 10/31/2023 1:00 PM XEROX MACHINE OPERATOR Yossi Angulo MD URINE [facility] (CLIA #:[id number]) [address] [place] [address], * (ABNORMAL) LIPID PANEL W REFLEX MEASURED LDL (10/22/2023 9:35 AM XEROX MACHINE OPERATOR) CHOLESTEROL,TOTAL 239(H) 100 - 199 mg/dL 10/22/2023 5:13 PM XEROX MACHINE OPERATOR [facility] Comment: Cholesterol, Total Reference Ranges Desirable <200 mg/dL Borderline 200-239 mg/dL High >=240 mg/dL TRIGLYCERIDES 735(H) <150 mg/dL 10/22/2023 5:13 PM XEROX MACHINE OPERATOR [facility] HDL CHOLESTEROL 30(L) >40 mg/dL 4 5:13 PM XEROX MACHINE OPERATOR [facility] NON-HDL CHOLESTEROL 209(H) <145 mg/dl 10/22/2023 5:13 PM XEROX MACHINE OPERATOR [facility] CHOL/HDL RATIO 7.97(H) <4.50 10/22/2023 5:13 PM XEROX MACHINE OPERATOR [facility] LDL CHOLESTEROL 4 5:13 PM XEROX MACHINE OPERATOR [facility] Comment:Invalid LDL when Tri g >400. VLDL CHOLESTEROL COMMENT 10/22/2023 5:13 PM XEROX MACHINE OPERATOR [facility] Comment:Unable to calculate VLDL. PROVIDER ORDERED STATUS RANDOM 10/22/2023 5:13 PM XEROX MACHINE OPERATOR [facility] Blood BLOOD SPECIMEN / Unknown Venipuncture / Unknown 10/22/2023 9:35 AM XEROX MACHINE OPERATOR 10/22/2023 9:36 AM XEROX MACHINE OPERATOR Yossi Angulo MD CHEMISTRY [facility] [address] [place] [address], * OCCULT BLOOD IFOBT STOOL (10/24/2022 1:39 PM XEROX MACHINE OPERATOR) STOOL BLOOD ,IFOBT Negative Negative 11/03/2022 3:38 PM XEROX MACHINE OPERATOR [facility] Stool STOOL SPECIMEN / Unknown Non-Blood / Unknown 10/24/2022 1:39 PM XEROX MACHINE OPERATOR 11/03/2022 1:39 PM XEROX MACHINE OPERATOR Layo Lopez MD LABORATORY [facility] [address] [place] [address], * LC HCV ANTIBODY RFX TO QUANT PCR (10/23/2022 10:35 AM XEROX MACHINE OPERATOR) HCV Ab <0.1 0.0 - 0.9 s/co ratio 10/26/2022 12:07 PM XEROX MACHINE OPERATOR [facility] Blood BLOOD SPECIMEN / Unknown Venipuncture / Unknown 10/23/2022 10:35 AM XEROX MACHINE OPERATOR 10/23/2022 10:38 AM XEROX MACHINE OPERATOR Narrative [facility] - 10/26/2022 12:07 PM XEROX MACHINE OPERATOR Performed at: ??[address] ??[id number] Director Of Instruction: Rudolph Sorto MD, Phone: ??[phone] Layo Lopez MD LABORATORY Performing Organization Address [facility]/ZIP Co de Phone Number [facility] [address] [place] [address] * HIV-1/O/2, 4TH GENERATION (10/23/2022 10:35 AM XEROX MACHINE OPERATOR) HIV Scr 4th Gen Non Reactive Non Reactive 10/26/2022 12:07 PM XEROX MACHINE OPERATOR [facility] Comment: HIV Negative HIV-1/HIV-2 antibodies and HIV-1 p24 antigen were NOT detected. There is no laboratory evidence of HIV infection. Blood BLOOD SPECIMEN / Unknown Venipuncture / Unknown 10/23/2022 10:35 AM XEROX MACHINE OPERATOR 10/23/2022 10:38 AM XEROX MACHINE OPERATOR Narrative [facility] - 10/26/2022 12:07 PM XEROX MACHINE OPERATOR Performed at: ??[address] ??[id number] Director Of Instruction: Rudolph Sorto MD, Phone: ??[phone] Layo Lopez MD LABORATORY Performing Organization Address [facility]/ZIP Co de Phone Number [facility] [address] [place] [address] from Last 3 Months or Most Recently Relevant to Health Maintenance Advance Directives * Full Code (Latest Code Status on File) Date Activated Date Inactivated Comments 08/13/2020 9:35 PM 08/16/2020 1:03 PM Question Answer Comments Code Status Discussion: Not Discussed Care Teams Car Wrecker Relationship Specialty Start Date End Date Pcp, No . PCP - General 09/17/23
== END 2024-02-13 16:46 | disposition home or self-care (01) ==
LOC: ED 16:40
PROVIDERS: Emergency Provider Family Medicine; PCP Family Medicine
DX: L03.314 Cellulitis of groin (principal)
CPT/HCPCS: 99282; 99283

== ENCOUNTER 2024-03-15 07:31 | Day surgery (SDC) | payer BC, SELFPAY ==
[2024-03-15] MEDS: LACTATED RINGERS 1000 ML 1,000 ML 100 ML IV (07:00)
--- OUTSIDE RECORDS SUMMARY | 2024-03-15 07:33 | XMS_ITS | Referral Summary ---
Author Organization [place] Address [address] [facility] [place] [address] Care Team Providers Care Legal Collector Name Role Phone [facility] [place] Primary Care Provider Allergies No known active [...] BASIC METABOLIC PANEL STAT 09/11/2020 2:04 PM DRY YARD WORKER from Last 3 Months or Most Recently Relevant to Health Maintenance Results * (ABNORMAL) Basic metabolic panel (09/11/2020 2:04 PM DRY YARD WORKER) Sodium 138 133 - 144 mmol/L 09/11/2020 2:25 PM [facility] Potassium 4.1 3.4 - 5.3 mmol/L 09/11/2020 2:25 PM [facility] Chloride 108 94 - 109 mmol/L 09/11/2020 2:25 PM [facility] Carbon Dioxide 26 20 - 32 mmol/L 09/11/2020 2:34 PM [facility] Anion Gap 4 3 - 14 mmol/L 09/11/2020 2:34 PM [facility] Glucose 112(H) 70 - 99 mg/dL 09/11/2020 2:34 PM [facility] Urea Nitrogen 22 7 - 30 mg/dL 09/11/2020 2:34 PM [facility] Creatinine 1.17 0.66 - 1.25 mg/dL 09/11/2020 2:34 PM [facility] GFR Estimate 76 >60 mL/min/{1. 73_m2} 09/11/2020 2:34 PM [facility] Comment: Non GFR Calc Starting 09/21/2018, serum creatinine based estimated GFR (eGFR) will be calculated using the Chronic Kidney Disease Epidemiology Collaboration (CKD-EPI) equation. GFR Estimate If Black 88 >60 mL/min/{1. 73_m2} 09/11/2020 2:34 PM [facility] Comment: GFR Calc Starting 09/21/2018, serum creatinine based estimated GFR (eGFR) will be calculated using the Chronic Kidney Disease Epidemiology Collaboration (CKD-EPI) equation. Calcium 9.4 8.5 - 10.1 mg/dL 09/11/2020 2:34 PM [facility] Blood specimen (specimen) 09/11/2020 2:04 PM DRY YARD WORKER 09/11/2020 2:12 PM [facility] Nahed Nance MD LAB - BLOOD O RDERABLES [facility] [address] [address], [facility] [phone] [facility] [address] [address], [facility] [phone] from Last 3 Months or Most Recently Relevant to Health Maintenance Care Teams Legal Collector Relationship Specialty Start Date End Date Clinic, [place] [address] PCP - General 08/13/20
--- OUTSIDE RECORDS SUMMARY | 2024-03-15 07:33 | XMS_ITS | Clinical Summary ---
Author Organization [place] Address [address] [facility] [place] [address] Care Team Providers Care Print Color Matcher Name Role Phone [facility] [place] Primary Care Provider Allergies No known active [...] BASIC METABOLIC PANEL STAT 09/11/2020 2:04 PM ELECTRICAL LINEWORKER from Last 3 Months or Most Recently Relevant to Health Maintenance Results * (ABNORMAL) Basic metabolic panel (09/11/2020 2:04 PM ELECTRICAL LINEWORKER) Sodium 138 133 - 144 mmol/L 09/11/2020 2:25 PM [facility] Potassium 4.1 3.4 - 5.3 mmol/L 09/11/2020 2:25 PM [facility] Chloride 108 94 - 109 mmol/L 09/11/2020 2:25 PM [facility] Carbon Dioxide 26 20 - 32 mmol/L 09/11/2020 2:34 PM [facility] Anion Gap 4 3 - 14 mmol/L 09/11/2020 2:34 PM [facility] Glucose 112(H) 70 - 99 mg/dL 09/11/2020 2:34 PM [facility] Urea Nitrogen 22 7 - 30 mg/dL 09/11/2020 2:34 PM [facility] Creatinine 1.17 0.66 - 1.25 mg/dL 09/11/2020 2:34 PM ELECTRICAL LINEWORKER [facility] GFR Estimate 76 >60 mL/min/{1. 73_m2} 09/11/2020 2:34 PM ELECTRICAL LINEWORKER [facility] Comment: Non GFR Calc Starting 09/21/2018, serum creatinine based estimated GFR (eGFR) will be calculated using the Chronic Kidney Disease Epidemiology Collaboration (CKD-EPI) equation. GFR Estimate If Black 88 >60 mL/min/{1. 73_m2} 09/11/2020 2:34 PM ELECTRICAL LINEWORKER [facility] Comment: GFR Calc Starting 09/21/2018, serum creatinine based estimated GFR (eGFR) will be calculated using the Chronic Kidney Disease Epidemiology Collaboration (CKD-EPI) equation. Calcium 9.4 8.5 - 10.1 mg/dL 09/11/2020 2:34 PM ELECTRICAL LINEWORKER [facility] Blood specimen (specimen) 09/11/2020 2:04 PM ELECTRICAL LINEWORKER 09/11/2020 2:12 PM ELECTRICAL LINEWORKER Nahed Nance MD LAB - BLOOD O RDERABLES [facility] [address] [place] [address], [place] [phone] [facility] [address] [place] [address], [place] [phone] from Last 3 Months or Most Recently Relevant to Health Maintenance Care Teams Print Color Matcher Relationship Specialty Start Date End Date [facility], [address] [address] PCP - General 08/13/20
--- OUTSIDE RECORDS SUMMARY | 2024-03-15 07:33 | XMS_ITS | Data Portability ---
Author Organization [facility] - (IP[facility] Address [address] [place] [address] Care Team Providers Care Hand Deicer Element Winder Name Role Phone VOTEL, BRENDA Primary Care [...] spine No observ ation record ed. [facility] [address], [place], [address], 08/15/2020 12:28:00 08/15/2008/14/2020 XR, lumba r spine No observ ation [facility]. [facility] [address], [place], [address], 08/15/2020 12:28:14 Result Notes None recorded. Procedures Surgical History None recorded. Imaging Results Imaging Date Name Status LastModified by Organiz ation Details LastModified Time 08/14/2020 XR, lumbar spine completed [facility] [address], [place], [address], 08/15/2020 12:28:00 08/14/2020 XR, lumbar spine completed [facility] [address], [place], [address], 08/15/2020 12:28:14 Procedure Notes None recorded. Medical [...] Encounter Closed Date Diagnosis/Indication Diagnosis SNOMED-CT Code [id number] Brenda Dunne [facility] [address] [place] [id number] 09/18/2020 14:12:13 09/18/2020 17:22:11 [id number] Kati Muñozgonzalo [facility] [address] [place] [id number] 10/09/2020 17:27:26 10/09/2020 17:28:30 Health Concerns Section Related Observation LastModified by Organization Detai ls LastModified Time None Recorded Concern Status LastModified by Organization Details LastModified Time None Recorded Advance Directives Directive None Recorded Payers Encounter Date Sequence Insurance Name Policy Number Policy Jennings Covered Member ID Jennings Member ID Guarantor Name 10/09/2020 1 [facility] ([facility]ICAID REPLACEMENT - HMO) [facility] [place] [id number] Ajntry G Coyle 09/18/2020 1 [facility] (MEDICAID REPLACEMENT - HMO) [facility] Ajntry G Coyle [id number] Ajntcarlos G Coyle Notes Date Note Type Note Provider Name and Address Organization Details Recorded Time 09/18/2020 text/html HPI Notes: PT NO SHOWED APPOINTMENT, NO DICTATION JESSICA Day [facility] 09/20/2020 09:30:11 10/09/2020 text/html HPI [...] of the operation. JESSICA De [facility] - [facility] 10/10/2020 11:33:28
--- OUTSIDE RECORDS SUMMARY | 2024-03-15 07:33 | XMS_ITS | Clinical Summary ---
Author Organization [facility] Address [place], [place] [address] Care Team Providers Care Cradle Slide Maker Name Role Phone Votel, Yossi Cabello MD Primary Care Provider + Allergies Active Allergy Reactions Criticality Noted Date Comments Grass Pollen Other - Describe In Comment Field 08/31/2020 Watery eyes [place] Hives 08/31/2020 Medications Medication Sig Dispensed Refills Start Date End Date Status allopurinoL (ZYLOPRIM) 100 mg tabletIndications:G out, unspecified cause, unspecified chronicity, unspecified site TAKE 2 TABLETS(200 MG) BY MOUTH EVERY DAY 180 Tablet 3 10/22/2023 Active metoprolol succinate (TOPROL XL) 50 mg sustained-release tabletIndications:H TN (hypertension) Take 1 Tablet (50 mg) by mouth once daily. 90 Tablet 3 10/22/2023 Active fenofibrate 160 mg tabletIndications:E levated triglycerides with high cholesterol Take 1 Tablet (160 mg) by mouth once daily with a meal. 90 Tablet 3 11/19/2023 Active mirtazapine (REMERON) 7.5 mg tabletIndications:C hronic insomnia Please take 1 pill orally at bedtime-- 10 hours before you plan on waking up 90 Tablet 3 12/30/2023 Active CPAPIndications:STEVENSON (obstructive sleep apnea) CPAP machine for home use at pressure 19cmw, full face mask x1/3month with a full face cushion x1/mo 1 Each 11 12/30/2023 Active amoxicillin-clavula sanchez 875-125 mg tablet (AUGMENTIN) 02/11/2024 4 Discontinue d(*Med complete/Re gimen complete/Le jud of care change) doxycycline 100 mg capsule 02/11/2024 Discontinue d(*Med complete/Re gimen complete/Le jud of care change) Active Problems Problem Noted Date Diagnosed Date Class 2 severe obesity with body mass index (BMI) of 35 to 39.9 with serious comorbidity 10/22/2023 Prediabetes 10/24/2022 STEVENSON 12/14/2018 AHI- 16 11/29/2021 AHI-34 FFM 02/14 Lumbar disc herniation 08/14/2020 Gout 08/13/2020 HTN (hypertension) Resolved Problems Problem Noted Date Diagnosed Date Resolved Date Cauda equina compression 08/14/202006/2021 Encounters Date Type Department Care Team Description 03/11/2024 Telephone [facility] [address] [place] [address] Mary Roth MD Appointment Request 03/09/2024 2:20 PM CDT Preop Visit [facility] [address] [place] [address] Loreto White MD Preoperative Exam (03/10/2024, excision of right groin cyst, Dr. Roth, [facility] ) 03/09/2024 Travel 03/08/2024 Telephone [facility] [address] [place] [address] Yossi Angulo MD Error-please disregard 03/08/2024 Telephone [facility] [address] [place] [address] Yossi Angulo MD Pre Procedure (Same day surgery [facility] wants information from Dr. Angulo on this patient) 02/19/2024 Telephone [facility] [address] [place] [address] Yossi Angulo MD Follow Up 02/17/2024 1:00 PM CDT Office Visit [facility] [address] [place] [address] Mary Roth MD Consult (Right groin cyst) 02/17/2024 10:00 AM CDT Office Visit [facility] [address] [place] [address] Yossi Angulo MD Medication Management (cholesterol); ER Follow up (02/05,,,11 at [facility], rt leg pain, cellulitis, cyst, seeing Dr. Roth today) 02/17/2024 Travel 02/15/2024 10:15 AM CDT Orders Only [facility] [address] [place] [address] Lab, [facility] 02/15/2024 Travel 02/12/2024 Travel 02/10/2024 Travel 12/30/2023 11:00 AM CDT Office Visit [facility] [address] [facility] [place] [address] Rubin Buitrago MD Sleep Follow-up 12/30/2023 Travel 12/25/2023 Travel from Last 3 Months Immunizations Name [...] of Food in the Last Ye ar 1 03/09/2024 Transportation Needs Answer Date Record ed Lack of Transportation (Medical) 1 03/09/2024 Housing Stability Answer Date Recorded Unable to Pay for Housing in the Last Year 1 11/16/2023 Education Answer Date Recorded What is the highest level of school you have completed or the highest degree you have received? GED or equivalent 03/2020 Sex and Gender Information Value Date Recorded Sex Assigned at Male 10/25/2021 7:14 PM PACKAGING LINE OPERATOR Gender Identity Male 10/25/2021 7:14 PM PACKAGING LINE OPERATOR Sexual Orientation Straight 10/25/2021 7: 14 PM PACKAGING LINE OPERATOR Obstetrics History Last Filed Vital Signs Vital Sign Reading Time Taken Comments Blood Pressure 136/87 03/09/2024 2:33 PM CDT Pulse 72 03/09/2024 2:29 PM CDT Temperature 36.8 ??C (98.2 ??F) 10/22/2023 10:[address] Respiratory Rate 16 08/16/2020 8:00 AM PACKAGING LINE OPERATOR Oxygen Saturation 97% 03/09/2024 2:29 PM CDT Inhaled Oxygen Concentration - - Weight 109 kg (240 lb 3.2 oz) 03/09/2024 2:29 PM CDT Height 171.1 cm (5' 7.36) 03/09/2024 2:29 PM CD T Body Mass Index 37.22 03/09/2024 2:29 PM CDT Plan of Treatment Upcoming Encounters Date Type Department Care Team (Late st Contact Info) Description 03/15/2024 10:00 AM CDT Office Visit [facility] at [facility] [address] [place] [address] Mary Roth MD [address] [place] [address] Health Maintenance Due Date Last Done Comments COVID-19 vaccine series ( season) 2023 Influenza for age 9-49 06/05/2024 Depression screening for age 12+ 10/22/2024 10/22/2023, 10/24/2022, 10/23/2022, Additional history exists BMI (ht and wt on same day) for age 18+ 03/09/2025 03/09/2024, 02/17/2024, 12/30/2023, Additional history exists Fecal testing sDNA-FIT (Cologuard) for age 45-75 10/30/2026 10/30/2023 Lipids for age 45-75 02/14/2029 02/15/2024, 10/22/2023, 10/22/2023, Additional history exists Tetanus booster 11/10/2029 11/10/2019 Tdap Completed 11/10/2019 HIV for age 15-65 Completed 10/23/2022 Hepatitis C screening for age 18-79 Completed 10/23/2022 Fecal testing non-DNA (FIT,FOBT,iFOBT) for age 45-75 Discontinued 10/24/2022 Pneumococcal series for age 6-64 Aged Out No longer eligible based on patient's age to complete this topic Procedures Procedure Name Priority Date/Time Associated Diagnosis Comments LIPID PANEL W REFLEX MEASURED LDL Routine 02/15/2024 10:06 AM CDT Elevated triglycerides with high cholesterol SDNA-FIT EXTERNAL (COLOGUARD) Routine 10/30/2023 9:15 AM PACKAGING LINE OPERATOR Screening for colon cancer OCCULT BLOOD IFOBT STOOL Routine 10/24/2022 1:39 PM PACKAGING LINE OPERATOR Screening for colon cancer LC HIV-1/O/2, 4TH GENERATION Routine 10/23/2022 10:35 AM PACKAGING LINE OPERATOR Screening for HIV (human immunodeficiency virus) LC HCV ANTIBODY RFX TO QUANT PCR Routine 10/23/2022 10:35 AM PACKAGING LINE OPERATOR Need for hepatitis C screening test from Last 3 Months or Most Recently Relevant to Health Maintenance Results * (ABNORMAL) LIPID PANEL W REFLEX MEASURED LDL (02/15/2024 10:06 AM CDT) CHOLESTEROL,TOTAL 190 100 - 199 mg/dL 02/15/2024 6:24 PM CDT [facility] Comment: Cholesterol, Total Reference Ranges Desirable <200 mg/dL Borderline 200-239 mg/dL High >=240 mg/dL TRIGLYCERIDES 183(H) <150 mg/dL 02/15/2024 6:24 PM CDT [facility] HDL CHOLESTEROL 30(L) >40 mg/dL 6:24 PM CDT [facility] NON-HDL CHOLESTEROL 160(H) <145 mg/dl 02/15/2024 6:24 PM CDT [facility] CHOL/HDL RATIO 6.33(H) <4.50 02/15/2024 6:24 PM CDT [facility] LDL CHOLESTEROL 123 <=130 mg/dL 02/15/2024 6:24 PM CDT [facility] VLDL CHOLESTEROL 37(H) <=30 mg/dL 02/15/2024 6:24 PM CDT [facility] PROVIDER ORDERED STATUS RANDOM 02/15/2024 6:24 PM CDT [facility] Blood BLOOD SPECIMEN / Unknown Venipuncture / Unknown 02/15/2024 10:06 AM CDT 02/15/2024 10:09 AM CDT Yossi Angulo MD CHEMISTRY [facility] [address] [place] [address], * SDNA-FIT EXTERNAL (COLOGUARD) (10/30/2023 9:15 AM PACKAGING LINE OPERATOR) NONINV COLON CA DNA+OCC BLD SCRN STL-IMP Negative Negative 11/06/2023 9:47 AM PACKAGING LINE OPERATOR [facility] (CLIA #:[id number]) Comment: NEGATIVE TEST RESULT. A negative Cologuard [...] (Terry Sanz al, N Engl J Med 2014;370(14):1286- 1297) The normal value (reference range) for this assay is negative. COLOGUARD RE-SCREENING RECOMMENDATION: Periodic colorectal cancer screening is an important part of preventive healthcare for asymptomatic individuals at average risk for colorectal cancer. ??Following a negative Cologuard result, the English Cancer Society and U.S. Multi-Society Task Force screening guidelines recommend a Cologuard re-screening interval of 3 years. References: English Cancer Society Guideline for Colorectal Cancer Screening: https://www.cancer.org/cancer/xryvg-xxbais-zobiff/qmodkihsf-qncknigov-tkuqxjx/ac s-rec ommendations.html.; Raheem DK, Starla MOE, Esthela NIEVES, Colorectal Cancer Screening: Recommendations for Physicians and Patients from the U.S. Multi-Society Task Force on Colorectal Cancer Screening , Am J Gastroenterology 2017; 112:9959-1555. TEST DESCRIPTION: Composite algorithmic analysis of stool [...] Tapia et al, N Engl J Med 2014;370(14):5610-6026.) Cologuard may produce a false negative or false positive result (no colorectal cancer or precancerous polyp present at colonoscopy follow up). A negative Cologuard test result does not guarantee the absence of CRC or advanced adenoma (pre-cancer). The current Cologuard screening interval is every 3 years. (English Cancer Society and U.S. Multi-Society Task Force). Cologuard performance data in a 10,000 patient pivotal study using colonoscopy as the reference method can be accessed at the following location: www.[employer]/results. Additional description of the Cologuard test process, warnings and precautions can be found at www.cologuard.com. Stool specimen (specimen) (Rectum) 10/30/2023 9:15 AM PACKAGING LINE OPERATOR 10/31/2023 1:00 PM PACKAGING LINE OPERATOR Yossi Angulo MD [facility] (CLIA #:[id number]) [address] [place] [address], * OCCULT BLOOD IFOBT STOOL (10/24/2022 1:39 PM PACKAGING LINE OPERATOR) STOOL BLOOD ,IFOBT Negative Negative 11/03/2022 3:38 PM PACKAGING LINE OPERATOR [facility] Stool STOOL SPECIMEN / Unknown Non-Blood / Unknown 10/24/2022 1:39 PM PACKAGING LINE OPERATOR 11/03/2022 1:39 PM PACKAGING LINE OPERATOR Layo Lopez MD LABORATORY Performing Organization Address City/[facility]/ZIP Co de Phone Number [facility] [address] [place] [address], [place] [phone] * LC HCV ANTIBODY RFX TO QUANT PCR (10/23/2022 10:35 AM PACKAGING LINE OPERATOR) HCV Ab <0.1 0.0 - 0.9 s/co ratio 10/26/2022 12:07 PM PACKAGING LINE OPERATOR [facility] Blood BLOOD SPECIMEN / Unknown Venipuncture / Unknown 10/23/2022 10:35 AM PACKAGING LINE OPERATOR 10/23/2022 10:38 AM PACKAGING LINE OPERATOR Narrative [facility] - 10/26/2022 12:07 PM PACKAGING LINE OPERATOR Performed at: ??01 - [address] ??[id number] Director Craft Center: Rudolph Sorto MD, Phone: ??[phone] Layo Lopez MD LABORATORY [facility] ([facility]) [address] [place] [address] * LC HIV-1/O/2, 4TH GENERATION (10/23/2022 10:35 AM PACKAGING LINE OPERATOR) HIV Scr 4th Gen Non Reactive Non Reactive 10/26/2022 12:07 PM PACKAGING LINE OPERATOR [facility] ([facility]) Comment: HIV Negative HIV-1/HIV-2 antibodies and HIV-1 p24 antigen were NOT detected. There is no laboratory evidence of HIV infection. Blood BLOOD SPECIMEN / Unknown Venipuncture / Unknown 10/23/2022 10:35 AM PACKAGING LINE OPERATOR 10/23/2022 10:38 AM PACKAGING LINE OPERATOR Narrative [facility] ([facility]) - 10/26/2022 12:07 PM PACKAGING LINE OPERATOR Performed at: ??01 - [address] ??[id number] Director Craft Center: Rudolph Sorto MD, Phone: ??[phone] Layo Lopez MD LABORATORY [facility] ([facility]) [address] [place] [address] from Last 3 Months or Most Recently Relevant to Health Maintenance Advance Directives * Full Code (Latest Code Status on File) Date Activated Date Inactivated Comments 08/13/2020 9:35 PM 08/16/2020 1:03 PM Question Answer Comments Code Status Discussion: Not Discussed Care Teams Cradle Slide Maker Relationship Specialty Start Date End Date Votel, Yossi Cabello MD [address] [place] [address] PCP - General Family Practice 03/09/24
[2024-03-15 07:40] VITALS: BMI 37.6
[2024-03-15 07:46] VITALS: BP 124/83; PULSE 71; RESP 18; TEMP 36.6; O2SAT 97
[2024-03-15] MEDS: SODIUM CHLORIDE 0.9 % (FLUSH) 10 ML SYRINGE IVF (08:25)
--- NOTE | 2024-03-15 09:28 | W.ANESCHARGE ---
Anesthesia Charges Start Date/Time Anesthesia Start Date: 03/15/24 Anesthesia Start Time: 09:40 Stop Date/Time Anesthesia Stop Date: 03/15/24 Anesthesia Stop Time: 10:27
[2024-03-15] MEDS: CEFAZOLIN 2 GM INJ IVP (09:50)
--- NOTE | 2024-03-15 09:54 | W.ANESCHARGE ---
Anesthesia Charges Start Date/Time Anesthesia Start Date: 03/15/24 Anesthesia Start Time: 09:40 Stop Date/Time Anesthesia Stop Date: 03/15/24 Anesthesia Stop Time: 10:27
[2024-03-15] MEDS: BUPIVACAINE 0.25% 30 ML 7.5 ML INJECTION (09:58)
[2024-03-15 10:28] VITALS: BP 113/72; PULSE 74; RESP 18; TEMP 36.6; O2SAT 94
[2024-03-15] MEDS: KETOROLAC 15 MG/ML inj IVP (10:30)
[2024-03-15] MEDS: HYDROCODONE-ACETAMIN 5-325 MG 1 TAB PO (10:30)
[2024-03-15 10:45] VITALS: BP 111/83; PULSE 69; RESP 18; O2SAT 96
[2024-03-15 11:00] VITALS: BP 112/80; PULSE 69; RESP 18; O2SAT 96
--- NOTE | 2024-03-15 11:01 | W.PM.H&PU ---
History & Physical Update History & Physical Update H&P Reviewed and patient assessed: No changes noted
--- NOTE | 2024-03-15 11:02 | PM.GSPRC ---
Operative Note Date of procedure: 03/15/24 Pre-op diagnosis: Right groin cyst Post-op diagnosis: same Type of Procedure: excision of right groin cyst Indications: patient is a 48-year-old male who presented to clinic with a symptomatic cyst of the right groin. Different treatment options were reviewed with patient, including but not limited to observation versus surgical excision. Risks and benefits of surgery were discussed at length. Risks included, but were not limited to: Bleeding, infection, risk of damage to surrounding structures and possible need for additional procedures. Additionally I reviewed the risk of recurrence. All questions and concerns were addressed with patient agreeing to proceed. Procedure Description: After discussing the risks and benefits of the procedure, the patient signed informed consent.? The operative site was marked and the patient was brought to the operating room and placed on the operating table in supine position.? Care was taken to pad the patient's pressure points.?? The patient was then given sedation by anesthesia.?? The operative site was then prepped and draped in the usual sterile fashion.? A time-out was then performed. A mixture of 1% lidocaine and 0.25% bupivacaine was used to anesthetize the area. An elliptical incision was made around the chronically inflamed skin, associated with the underlying subcutaneous cyst. Dissection was carried down into subcutaneous tissue. The specimen was removed in its entirety. The underlying fat was palpated with no other abnormalities noted. No other evidence of any tunneling scar tissue or chronic inflammation. The incision was then closed in layers with interrupted 3 0 Vicryl and running 4-0 Monocryl subcuticular stitch. Dermabond and a Mepilex dressing was placed over top. Sterile dressings were then applied. ? The patient was then woken and transported to the recovery area in stable condition. ? The patient tolerated the procedure well. Anesthesia: MAC and local Surgeon: Mary Roth MD Estimated blood loss (mL): 5 Additional Specimen Information: Right groin cyst Condition: stable Disposition: same day
== END 2024-03-15 11:16 | disposition home or self-care (01) ==
LOC: OR 07:32
PROVIDERS: PCP Family Medicine; Visit Provider Surgery
PROC: (CPT 11406; principal; 2024-03-15 08:45)
DX: D23.5 Other benign neoplasm of skin of trunk (principal)
CPT/HCPCS: 11406; 12031; 00400; 88305; A9270; J0665; J0690; J1885; J2250; J2405; J2704; J3010; J7120